=== PATIENT | female | born 1960 | race African-American/Black ===

== ENCOUNTER 2022-02-25 22:24 | Emergency (ER) | payer OTHER ==
[~2022-02-25] VITALS: Ht 167.6 cm; Wt 122.4 kg
[2022-02-25 23:58] LABS: BASOPHILS % 1.3 % (0.0-2.0); EOSINOPHILS % 2.1 % (0.0-5.0); HEMATOCRIT. 41.2 % (36.0-48.0); HEMOGLOBIN. 13.9 g/dL (12.0-16.0); LYMPHOCYTES % 34.4 % (20.0-50.0); MEAN CORPUSCULAR HEMOGLOBIN 29.6 pg (28.0-32.0); MEAN CORPUSCULAR VOLUME 87.9 fL (81.0-99.0); MEAN PLATELET VOLUME 9.6 fl (7.4-10.4); NEUTROPHILS % 56.2 % (40.0-76.0); PLATELET 225 x1000/uL (130-400); RED BLOOD CELL COUNT 4.68 mill/uL (4.2-5.4); RED CELL DISTRIBUTION WIDTH 13.8 % (11.6-14.6)
[2022-02-26 00:05] LABS: CHLORIDE 103 mEq/L (98-107)
[2022-02-26] MEDS ORDERED: IOHEXOL-350 100 ML BOTTLE ONE (01:05)
[2022-02-26 01:31] VITALS: BP 154/82
[2022-02-26 02:00] LABS: PROTHROMBIN TIME 10.9 sec (9.6-11.0)
[2022-02-26] MEDS ORDERED: ASPIRIN 325MG TABLET PO ONE (02:45)
[2022-02-26] MEDS ORDERED: LORAZEPAM 2MG/ML CPJ IV ONE (03:30)
== END 2022-02-26 07:04 | disposition left against medical advice (07) ==
LOC: ER 22:24 → CANBEDREQ 02-26 07:44
DX: D32.0 Benign neoplasm of cerebral meninges (principal); E11.9 Type 2 diabetes mellitus without complications; Z86.73 Personal history of transient ischemic attack (TIA), and cerebral infarction without residual deficits; Z88.8 Allergy status to other drugs, medicaments and biological substances; Z79.01 Long term (current) use of anticoagulants
CPT/HCPCS: 36415; 70450; 70496; 71045; 80053; 84484; 85025; 85610; 93005; 96374; 99285; J2060; Q9967

== ENCOUNTER 2022-03-13 00:03 | Inpatient (IN) | payer OTHER ==
[~2022-03-13] VITALS: Ht 162.6 cm; Wt 127.5 kg
[2022-03-13 00:50] LABS: BASOPHILS % 0.8 % (0.0-2.0); EOSINOPHILS % 2.3 % (0.0-5.0); HEMATOCRIT. 39.1 % (36.0-48.0); LYMPHOCYTES % 37.2 % (20.0-50.0); MEAN CORPUSCULAR HEMOGLOBIN 29.3 pg (28.0-32.0); MEAN CORPUSCULAR VOLUME 88.1 fL (81.0-99.0); MEAN PLATELET VOLUME 8.9 fl (7.4-10.4); MONOCYTES % 6.8 % (2.0-8.0); NEUTROPHILS % 52.9 % (40.0-76.0); PLATELET 199 x1000/uL (130-400); RED BLOOD CELL COUNT 4.44 mill/uL (4.2-5.4); RED CELL DISTRIBUTION WIDTH 13.8 % (11.6-14.6)
[2022-03-13 00:53] LABS: CHLORIDE 103 mEq/L (98-107)
[2022-03-13 01:11] LABS: ETHANOL BLOOD < 10 mg/dL
[2022-03-13] MEDS ORDERED: ASPIRIN 325MG EC TABLET PO NR (02:30)
[2022-03-13 03:21] LABS: CLARITY URINE CLOUDY (CLEAR); COLOR URINE YELLOW (YELLOW); KETONES URINE TRACE (NEGATIVE); LEUKOCYTE ESTERASE URINE 1+ (NEGATIVE); NITRITE URINE POSITIVE (NEGATIVE); OCCULT BLOOD URINE NEGATIVE (NEGATIVE); PH URINE 5.5 (4.5-8.0); PROTEIN URINE NEGATIVE (NEGATIVE); SPECIFIC GRAVITY URINE 1.042 (1.005-1.030)
[2022-03-13 03:45] LABS: *AMPHETAMINES SCREEN URINE NEGATIVE (NEGATIVE); *BARBITURATES SCREEN URINE NEGATIVE (NEGATIVE); *BENZODIAZEPINES SCREEN URINE NEGATIVE (NEGATIVE); *COCAINE SCREEN URINE NEGATIVE (NEGATIVE); CANNABINOID URINE SCREEN NEGATIVE (NEGATIVE); METHADONE URINE SCREEN NEGATIVE (NEGATIVE); OPIATES URINE SCREEN NEGATIVE (NEGATIVE); PHENCYCLIDINE URINE SCREEN NEGATIVE (NEGATIVE)
[2022-03-13] MEDS ORDERED: CEFTRIAXONE 1 G PREMIX 50 ML IV NR (04:00)
[2022-03-13 08:00] VITALS: BP 147/88
[2022-03-13 12:00] VITALS: BP 153/83
[2022-03-13] MEDS ORDERED: METF-414 PO (14:06)
[2022-03-13] MEDS ORDERED: ATOR10TA MT (14:13)
[2022-03-13] MEDS ORDERED: ERTU5TAB PO (14:13)
[2022-03-13] MEDS ORDERED: APIX5TAB PO (14:19)
[2022-03-13] MEDS ORDERED: DEXTROSE 50% WATER 50ML SYRINGE IV PRN ×3 (14:30→15:15)
[2022-03-13] MEDS ORDERED: ENOXAPARIN 30MG/0.3ML SYR SUBCUT SCH ×3 (14:30→21:00)
[2022-03-13] MEDS ORDERED: CEFTRIAXONE 1 G PREMIX 50 ML IV SCH (14:30)
[2022-03-13] MEDS: ASPIRIN 81MG TABLET PO SCH (15:15)
[2022-03-13] MEDS: LISINOPRIL 20MG TABLET PO SCH (15:16)
[2022-03-13 16:00] VITALS: BP 143/81
[2022-03-13] MEDS: BLOOD SUGAR DIAGNOSTIC STRIP TEST SCH ×2 (16:52→20:16)
[2022-03-13] MEDS: METFORMIN HCL 500MG TABLET PO SCH (17:09)
[2022-03-13] MEDS: INSULIN LISPRO 100 UNITS/ML SUBCUT SCH ×2 (17:14→21:45)
[2022-03-13] MEDS ORDERED: INSULIN LISPRO 100 UNITS/ML SUBCUT SCH (17:50)
[2022-03-13 20:00] VITALS: BP 151/81
[2022-03-13] MEDS ORDERED: ATORVASTATIN CALCIUM 40MG TABLET PO SCH (21:00)
[2022-03-13] MEDS ORDERED: NALOXONE HCL 0.4MG/ML VIAL IV PRN (21:30)
[2022-03-13] MEDS: HYDROCODONE/ACETAMINOPHEN 5/325MG TABLET PO PRN (21:43)
[2022-03-13] MEDS ORDERED: LORAZEPAM 2MG/ML CPJ IV NR (21:45)
[2022-03-13 21:52] LABS: CHLORIDE 109 mEq/L (98-107)
[2022-03-13 21:59] LABS: HDL CHOLESTEROL 41 mg/dL (40-59); LDL CHOLESTEROL 96 mg/dL (5-100)
[2022-03-14] VITALS (7 sets, daily range): BP systolic 108–179; BP diastolic 58–92
[2022-03-14 01:04] LABS: BASOPHILS % 0.9 % (0.0-2.0); EOSINOPHILS % 3.2 % (0.0-5.0); HEMATOCRIT. 40.8 % (36.0-48.0); HEMOGLOBIN. 13.4 g/dL (12.0-16.0); LYMPHOCYTES % 38.9 % (20.0-50.0); MEAN CORPUSCULAR VOLUME 88.4 fL (81.0-99.0); MONOCYTES % 9.4 % (2.0-8.0); NEUTROPHILS % 47.6 % (40.0-76.0); PLATELET 186 x1000/uL (130-400); RED BLOOD CELL COUNT 4.62 mill/uL (4.2-5.4); RED CELL DISTRIBUTION WIDTH 13.6 % (11.6-14.6)
[2022-03-14] MEDS: CEFTRIAXONE 1,000 MG in DEXTROSE 5% WATER 50 ML IV SCH (04:00)
[2022-03-14] MEDS ORDERED: CLONIDINE 0.1MG TABLET PO PRN (06:30)
[2022-03-14] MEDS: BLOOD SUGAR DIAGNOSTIC STRIP TEST SCH ×4 (06:36→21:00)
[2022-03-14] MEDS: APIXABAN 5 MG TABLET PO SCH (08:52)
[2022-03-14] MEDS: ASPIRIN 81MG TABLET PO SCH (08:52)
[2022-03-14] MEDS: LISINOPRIL 20MG TABLET PO SCH (08:52)
[2022-03-14] MEDS: METFORMIN HCL 500MG TABLET PO SCH (08:52)
[2022-03-14] MEDS ORDERED: ATORVASTATIN CALCIUM 10MG TABLET PO SCH (09:00)
[2022-03-14] MEDS: INSULIN LISPRO 100 UNITS/ML SUBCUT SCH ×3 (09:10→21:00)
[2022-03-14] MEDS ORDERED: LORAZEPAM 2MG/ML CPJ IV SCH (09:30)
[2022-03-14] MEDS: ATORVASTATIN CALCIUM 40MG TABLET PO SCH (22:00)
[2022-03-15] VITALS: BP 152/73
[2022-03-15 04:00] VITALS: BP 155/76
[2022-03-15] MEDS: CEFTRIAXONE 1,000 MG in DEXTROSE 5% WATER 50 ML IV SCH (04:00)
[2022-03-15] MEDS: INSULIN LISPRO 100 UNITS/ML SUBCUT SCH ×4 (06:33→21:53)
[2022-03-15] MEDS: BLOOD SUGAR DIAGNOSTIC STRIP TEST SCH ×4 (06:36→21:00)
[2022-03-15 08:00] VITALS: BP 137/83
[2022-03-15] MEDS: LISINOPRIL 20MG TABLET PO SCH (09:13)
[2022-03-15] MEDS: ASPIRIN 81MG TABLET PO SCH (09:13)
[2022-03-15] MEDS: METFORMIN HCL 500MG TABLET PO SCH ×2 (09:14→18:08)
[2022-03-15] MEDS: APIXABAN 5 MG TABLET PO SCH ×2 (09:14→18:08)
[2022-03-15 11:27] LABS: HEMATOCRIT. 41.2 % (36.0-48.0); HEMOGLOBIN. 13.9 g/dL (12.0-16.0); MEAN CORPUSCULAR HEMOGLOBIN 29.4 pg (28.0-32.0); MEAN CORPUSCULAR VOLUME 87.2 fL (81.0-99.0); MEAN PLATELET VOLUME 9.6 fl (7.4-10.4); PLATELET 197 x1000/uL (130-400); RED BLOOD CELL COUNT 4.72 mill/uL (4.2-5.4); RED CELL DISTRIBUTION WIDTH 14.1 % (11.6-14.6)
[2022-03-15 11:35] LABS: CHLORIDE 105 mEq/L (98-107)
[2022-03-15 12:00] VITALS: BP 141/74
[2022-03-15] MEDS: HYDROCODONE/ACETAMINOPHEN 5/325MG TABLET PO PRN ×2 (13:25→21:43)
[2022-03-15 13:28] LABS: PLATELET ESTIMATE NORMAL
[2022-03-15 16:00] VITALS: BP 118/61
[2022-03-15 20:00] VITALS: BP 130/61
[2022-03-15] MEDS: ATORVASTATIN CALCIUM 40MG TABLET PO SCH (21:42)
[2022-03-16] VITALS: BP 140/78
[2022-03-16 04:00] VITALS: BP 148/88
[2022-03-16] MEDS: INSULIN LISPRO 100 UNITS/ML SUBCUT SCH ×4 (06:12→21:50)
[2022-03-16] MEDS: BLOOD SUGAR DIAGNOSTIC STRIP TEST SCH ×4 (06:16→21:25)
[2022-03-16 08:00] VITALS: BP 147/79
[2022-03-16] MEDS: APIXABAN 5 MG TABLET PO SCH ×2 (09:30→17:52)
[2022-03-16] MEDS: ASPIRIN 81MG TABLET PO SCH (09:30)
[2022-03-16] MEDS: METFORMIN HCL 500MG TABLET PO SCH ×2 (09:30→17:52)
[2022-03-16] MEDS: LISINOPRIL 20MG TABLET PO SCH (09:31)
[2022-03-16 11:16] LABS: BASOPHILS % 1.1 % (0.0-2.0); EOSINOPHILS % 3.9 % (0.0-5.0); HEMATOCRIT. 39.3 % (36.0-48.0); HEMOGLOBIN. 13.2 g/dL (12.0-16.0); LYMPHOCYTES % 40.1 % (20.0-50.0); MEAN CORPUSCULAR HEMOGLOBIN 29.2 pg (28.0-32.0); MEAN CORPUSCULAR VOLUME 86.6 fL (81.0-99.0); MEAN PLATELET VOLUME 9.4 fl (7.4-10.4); MONOCYTES % 7.4 % (2.0-8.0); NEUTROPHILS % 47.5 % (40.0-76.0); PLATELET 168 x1000/uL (130-400); RED BLOOD CELL COUNT 4.54 mill/uL (4.2-5.4); RED CELL DISTRIBUTION WIDTH 13.8 % (11.6-14.6)
[2022-03-16 11:30] LABS: CHLORIDE 106 mEq/L (98-107)
[2022-03-16 12:00] VITALS: BP 141/77
[2022-03-16] MEDS: HYDROCODONE/ACETAMINOPHEN 5/325MG TABLET PO PRN (12:40)
[2022-03-16 16:00] VITALS: BP 135/75
[2022-03-16 20:00] VITALS: BP 125/65
[2022-03-16] MEDS ORDERED: TOPI100T37 PO (21:13)
[2022-03-16] MEDS ORDERED: SUMA50TA16 PO (21:13)
[2022-03-16] MEDS ORDERED: MECL-159 PO (21:13)
[2022-03-16] MEDS: TOPIRAMATE 100MG TABLET PO SCH (21:47)
[2022-03-16] MEDS: GABAPENTIN 100MG CAPSULE PO SCH (21:47)
[2022-03-16] MEDS: ATORVASTATIN CALCIUM 40MG TABLET PO SCH (21:47)
[2022-03-16] MEDS ORDERED: *PATIENT'S OWN MEDICATION STORAGE XX SCH (22:00)
[2022-03-17] VITALS: BP 142/61
[2022-03-17 04:00] VITALS: BP 130/66
[2022-03-17] MEDS: GABAPENTIN 100MG CAPSULE PO SCH ×3 (05:47→19:42)
[2022-03-17] MEDS: BLOOD SUGAR DIAGNOSTIC STRIP TEST SCH ×5 (05:47→21:00)
[2022-03-17 06:57] LABS: BASOPHILS % 0.5 % (0.0-2.0); EOSINOPHILS % 3.7 % (0.0-5.0); HEMATOCRIT. 39.3 % (36.0-48.0); HEMOGLOBIN. 13.1 g/dL (12.0-16.0); LYMPHOCYTES % 38.8 % (20.0-50.0); MEAN CORPUSCULAR VOLUME 86.8 fL (81.0-99.0); MEAN PLATELET VOLUME 10.2 fl (7.4-10.4); MONOCYTES % 6.6 % (2.0-8.0); NEUTROPHILS % 50.4 % (40.0-76.0); PLATELET 169 x1000/uL (130-400); RED BLOOD CELL COUNT 4.52 mill/uL (4.2-5.4); RED CELL DISTRIBUTION WIDTH 13.7 % (11.6-14.6)
[2022-03-17 06:59] LABS: CHLORIDE 104 mEq/L (98-107)
[2022-03-17] MEDS: INSULIN LISPRO 100 UNITS/ML SUBCUT SCH ×5 (07:45→21:00)
[2022-03-17 08:00] VITALS: BP 119/78
[2022-03-17] MEDS: APIXABAN 5 MG TABLET PO SCH ×2 (09:34→18:17)
[2022-03-17] MEDS: ASPIRIN 81MG TABLET PO SCH (09:34)
[2022-03-17] MEDS: LISINOPRIL 20MG TABLET PO SCH (09:34)
[2022-03-17] MEDS: METFORMIN HCL 500MG TABLET PO SCH ×2 (09:34→18:17)
[2022-03-17 12:00] VITALS: BP 156/89
[2022-03-17] MEDS: HYDROCODONE/ACETAMINOPHEN 5/325MG TABLET PO PRN (20:48)
[2022-03-17] MEDS: ATORVASTATIN CALCIUM 40MG TABLET PO SCH (20:48)
[2022-03-17] MEDS: TOPIRAMATE 100MG TABLET PO SCH (20:51)
[2022-03-17 21:00] VITALS: BP 153/66
[2022-03-17] MEDS ORDERED: TOPIRAMATE 100MG TABLET PO SCH (21:00)
[2022-03-18] VITALS (7 sets, daily range): BP systolic 112–180; BP diastolic 56–92
[2022-03-18 05:26] LABS: BASOPHILS % 0.7 % (0.0-2.0); EOSINOPHILS % 4.1 % (0.0-5.0); HEMATOCRIT. 40.7 % (36.0-48.0); HEMOGLOBIN. 13.5 g/dL (12.0-16.0); LYMPHOCYTES % 39.9 % (20.0-50.0); MEAN CORPUSCULAR HEMOGLOBIN 29.5 pg (28.0-32.0); MEAN CORPUSCULAR VOLUME 88.7 fL (81.0-99.0); MONOCYTES % 6.4 % (2.0-8.0); NEUTROPHILS % 48.9 % (40.0-76.0); RED BLOOD CELL COUNT 4.59 mill/uL (4.2-5.4); RED CELL DISTRIBUTION WIDTH 13.7 % (11.6-14.6)
[2022-03-18 05:30] LABS: CHLORIDE 107 mEq/L (98-107)
[2022-03-18] MEDS: GABAPENTIN 100MG CAPSULE PO SCH ×3 (06:02→21:38)
[2022-03-18] MEDS: BLOOD SUGAR DIAGNOSTIC STRIP TEST SCH ×4 (07:20→21:38)
[2022-03-18] MEDS: INSULIN LISPRO 100 UNITS/ML SUBCUT SCH ×4 (07:50→21:00)
[2022-03-18] MEDS: LISINOPRIL 20MG TABLET PO SCH ×2 (09:00→09:07)
[2022-03-18] MEDS: ASPIRIN 81MG TABLET PO SCH (09:01)
[2022-03-18] MEDS: METFORMIN HCL 500MG TABLET PO SCH ×2 (09:02→17:40)
[2022-03-18] MEDS: APIXABAN 5 MG TABLET PO SCH ×2 (09:07→17:00)
[2022-03-18] MEDS: HYDROCODONE/ACETAMINOPHEN 5/325MG TABLET PO PRN (12:08)
[2022-03-18 15:47] LABS: CLARITY URINE CLOUDY (CLEAR); COLOR URINE YELLOW (YELLOW); KETONES URINE NEGATIVE (NEGATIVE); LEUKOCYTE ESTERASE URINE 2+ (NEGATIVE); NITRITE URINE NEGATIVE (NEGATIVE); OCCULT BLOOD URINE NEGATIVE (NEGATIVE); PROTEIN URINE NEGATIVE (NEGATIVE); SPECIFIC GRAVITY URINE 1.018 (1.005-1.030)
[2022-03-18] MEDS: TOPIRAMATE 100MG TABLET PO SCH (21:38)
[2022-03-18] MEDS: ATORVASTATIN CALCIUM 40MG TABLET PO SCH (21:38)
[2022-03-18] MEDS ORDERED: HYDROCODONE/ACETAMINOPHEN 5/325MG TABLET PO PRN (21:45)
[2022-03-19] VITALS: BP 107/71
[2022-03-19 04:00] VITALS: BP 134/86
[2022-03-19] MEDS: BLOOD SUGAR DIAGNOSTIC STRIP TEST SCH ×4 (06:58→20:57)
[2022-03-19] MEDS: GABAPENTIN 100MG CAPSULE PO SCH ×3 (06:58→22:06)
[2022-03-19 08:00] VITALS: BP 122/61
[2022-03-19] MEDS: APIXABAN 5 MG TABLET PO SCH ×2 (09:05→18:31)
[2022-03-19] MEDS: ASPIRIN 81MG TABLET PO SCH (09:05)
[2022-03-19] MEDS: METFORMIN HCL 500MG TABLET PO SCH ×2 (09:05→18:32)
[2022-03-19] MEDS: INSULIN LISPRO 100 UNITS/ML SUBCUT SCH ×4 (09:12→21:04)
[2022-03-19] MEDS: LISINOPRIL 20MG TABLET PO SCH (09:16)
[2022-03-19 16:00] VITALS: BP 130/69
[2022-03-19 20:00] VITALS: BP 121/75
[2022-03-19] MEDS: TOPIRAMATE 100MG TABLET PO SCH (21:00)
[2022-03-19] MEDS: ATORVASTATIN CALCIUM 40MG TABLET PO SCH (21:00)
[2022-03-19] MEDS ORDERED: NALOXONE HCL 0.4MG/ML VIAL IV PRN (21:45)
[2022-03-19] MEDS: HYDROCODONE/ACETAMINOPHEN 5/325MG TABLET PO PRN (22:06)
[2022-03-20] VITALS: BP 127/62
[2022-03-20 04:00] VITALS: BP 130/70
[2022-03-20] MEDS: BLOOD SUGAR DIAGNOSTIC STRIP TEST SCH ×4 (05:32→21:00)
[2022-03-20] MEDS: GABAPENTIN 100MG CAPSULE PO SCH ×3 (05:32→21:26)
[2022-03-20 08:00] VITALS: BP 130/76
[2022-03-20 08:13] LABS: BASOPHILS % 0.4 % (0.0-2.0); EOSINOPHILS % 3.9 % (0.0-5.0); HEMATOCRIT. 41.2 % (36.0-48.0); HEMOGLOBIN. 13.6 g/dL (12.0-16.0); LYMPHOCYTES % 38.9 % (20.0-50.0); MEAN CORPUSCULAR HEMOGLOBIN 29.1 pg (28.0-32.0); MEAN CORPUSCULAR VOLUME 88.4 fL (81.0-99.0); MEAN PLATELET VOLUME 9.7 fl (7.4-10.4); MONOCYTES % 5.2 % (2.0-8.0); NEUTROPHILS % 51.6 % (40.0-76.0); PLATELET 174 x1000/uL (130-400); RED BLOOD CELL COUNT 4.66 mill/uL (4.2-5.4)
[2022-03-20] MEDS: INSULIN LISPRO 100 UNITS/ML SUBCUT SCH ×4 (08:35→21:32)
[2022-03-20] MEDS: APIXABAN 5 MG TABLET PO SCH ×2 (08:38→15:57)
[2022-03-20] MEDS: ASPIRIN 81MG TABLET PO SCH (08:38)
[2022-03-20] MEDS: METFORMIN HCL 500MG TABLET PO SCH ×2 (08:39→17:33)
[2022-03-20] MEDS: LISINOPRIL 20MG TABLET PO SCH (08:39)
[2022-03-20 12:00] VITALS: BP 99/46
[2022-03-20 16:00] VITALS: BP 118/49
[2022-03-20 20:00] VITALS: BP 104/54
[2022-03-20] MEDS: ATORVASTATIN CALCIUM 40MG TABLET PO SCH (21:27)
[2022-03-20] MEDS: HYDROCODONE/ACETAMINOPHEN 5/325MG TABLET PO PRN (21:27)
[2022-03-20] MEDS: TOPIRAMATE 100MG TABLET PO SCH (21:27)
[2022-03-21] VITALS: BP 118/76
[2022-03-21 04:00] VITALS: BP 147/84
[2022-03-21] MEDS: GABAPENTIN 100MG CAPSULE PO SCH ×3 (06:37→21:22)
[2022-03-21] MEDS: BLOOD SUGAR DIAGNOSTIC STRIP TEST SCH ×4 (06:42→21:00)
[2022-03-21] MEDS: INSULIN LISPRO 100 UNITS/ML SUBCUT SCH ×4 (07:50→21:00)
[2022-03-21 08:00] VITALS: BP 123/62
[2022-03-21] MEDS: METFORMIN HCL 500MG TABLET PO SCH ×2 (11:58→17:43)
[2022-03-21] MEDS: LISINOPRIL 20MG TABLET PO SCH (11:59)
[2022-03-21] MEDS: ASPIRIN 81MG TABLET PO SCH (11:59)
[2022-03-21] MEDS: APIXABAN 5 MG TABLET PO SCH ×2 (11:59→17:43)
[2022-03-21 12:00] VITALS: BP 120/70
[2022-03-21] MEDS: HYDROCODONE/ACETAMINOPHEN 5/325MG TABLET PO PRN ×2 (12:00→21:24)
[2022-03-21 16:00] VITALS: BP 111/59
[2022-03-21 20:00] VITALS: BP 92/47
[2022-03-21] MEDS: ATORVASTATIN CALCIUM 40MG TABLET PO SCH (21:22)
[2022-03-21] MEDS: TOPIRAMATE 100MG TABLET PO SCH (21:22)
[2022-03-22] VITALS: BP 114/59
[2022-03-22 04:00] VITALS: BP 150/72
[2022-03-22] MEDS: GABAPENTIN 100MG CAPSULE PO SCH ×3 (06:42→21:05)
[2022-03-22] MEDS: BLOOD SUGAR DIAGNOSTIC STRIP TEST SCH ×4 (06:54→21:00)
[2022-03-22] MEDS: INSULIN LISPRO 100 UNITS/ML SUBCUT SCH ×4 (07:50→20:56)
[2022-03-22] MEDS: METFORMIN HCL 500MG TABLET PO SCH ×2 (07:50→18:12)
[2022-03-22 08:00] VITALS: BP 128/71
[2022-03-22] MEDS: ASPIRIN 81MG TABLET PO SCH (09:01)
[2022-03-22] MEDS: APIXABAN 5 MG TABLET PO SCH ×2 (09:01→18:11)
[2022-03-22] MEDS: LISINOPRIL 20MG TABLET PO SCH (09:05)
[2022-03-22 12:00] VITALS: BP 118/67
[2022-03-22 16:00] VITALS: BP 141/80
[2022-03-22 20:00] VITALS: BP 129/78
[2022-03-22] MEDS: ATORVASTATIN CALCIUM 40MG TABLET PO SCH (20:54)
[2022-03-22] MEDS: TOPIRAMATE 100MG TABLET PO SCH (20:54)
[2022-03-22] MEDS: HYDROCODONE/ACETAMINOPHEN 5/325MG TABLET PO PRN (21:05)
[2022-03-23] VITALS: BP 122/55
[2022-03-23] MEDS: HYDROCODONE/ACETAMINOPHEN 5/325MG TABLET PO PRN ×2 (02:10→13:05)
[2022-03-23 04:00] VITALS: BP 131/59
[2022-03-23] MEDS: GABAPENTIN 100MG CAPSULE PO SCH (06:32)
[2022-03-23] MEDS: BLOOD SUGAR DIAGNOSTIC STRIP TEST SCH (06:32)
[2022-03-23 08:00] VITALS: BP 130/68
[2022-03-23] MEDS: ASPIRIN 81MG TABLET PO SCH (09:09)
[2022-03-23] MEDS: METFORMIN HCL 500MG TABLET PO SCH (09:09)
[2022-03-23] MEDS: APIXABAN 5 MG TABLET PO SCH (09:10)
[2022-03-23] MEDS: LISINOPRIL 20MG TABLET PO SCH (09:10)
[2022-03-23] MEDS: INSULIN LISPRO 100 UNITS/ML SUBCUT SCH (09:32)
[2022-03-23 10:37] VITALS: BP 130/68
[2022-03-23 13:05] VITALS: BP 130/68
== END 2022-03-23 15:54 | DRG 45 ==
LOC: ER 00:03 → 6WST 04:11 → ENRESERV 06:53 → 6EST 03-19 14:37
PROVIDERS: ADMIT Internal Medicine; ATTEND Internal Medicine
DX: I63.511 Cerebral infarction due to unspecified occlusion or stenosis of right middle cerebral artery (principal); I31.39 Other pericardial effusion (noninflammatory); E44.0 Moderate protein-calorie malnutrition; D32.0 Benign neoplasm of cerebral meninges; E11.9 Type 2 diabetes mellitus without complications; Z20.822 Contact with and (suspected) exposure to COVID-19; N39.0 Urinary tract infection, site not specified; E78.5 Hyperlipidemia, unspecified; E66.01 Morbid (severe) obesity due to excess calories; H54.40 Blindness, one eye, unspecified eye; I10 Essential (primary) hypertension; I69.354 Hemiplegia and hemiparesis following cerebral infarction affecting left non-dominant side; Z88.8 Allergy status to other drugs, medicaments and biological substances; Z91.199 Patient's noncompliance with other medical treatment and regimen due to unspecified reason; Z79.01 Long term (current) use of anticoagulants; Z68.42 Body mass index [BMI] 45.0-49.9, adult
CPT/HCPCS: 36415; 70551; 71045; 80048; 80053; 80061; 80305; 80320; 81003; 82140; 82962; 83036; 84443; 84484; 85025; 87426; 93005; 93306; 93880; 97110; 97112; 97116; 97162; 97166; 97530; 97535; 99285; C1893; J0696; J1650; J1815; J2060; J7060; U0003; U0005; G0480

== ENCOUNTER 2022-05-01 17:03 | Emergency (ER) | payer MEDICAID, OTHER ==
[~2022-05-01] VITALS: Ht 167.6 cm; Wt 117.0 kg
[~2022-05-01 17:03] MED LIST: APIX5TAB PO; ATOR10TA MT; ERTU5TAB PO; MECL-159 PO; METF-414 PO; SUMA50TA16 PO; TOPI100T37 PO
[2022-05-01 18:00] LABS: BASOPHILS % 0.7 % (0.0-2.0); EOSINOPHILS % 1.6 % (0.0-5.0); HEMATOCRIT. 42.3 % (36.0-48.0); LYMPHOCYTES % 30.6 % (20.0-50.0); MEAN CORPUSCULAR HEMOGLOBIN 29.1 pg (28.0-32.0); MEAN CORPUSCULAR VOLUME 88.1 fL (81.0-99.0); MEAN PLATELET VOLUME 9.1 fl (7.4-10.4); MONOCYTES % 5.4 % (2.0-8.0); NEUTROPHILS % 61.7 % (40.0-76.0); PLATELET 214 x1000/uL (130-400); RED CELL DISTRIBUTION WIDTH 13.9 % (11.6-14.6)
[2022-05-01 18:08] LABS: CHLORIDE 107 mEq/L (98-107)
[2022-05-01 21:36] LABS: CLARITY URINE CLEAR (CLEAR); COLOR URINE YELLOW (YELLOW); KETONES URINE 2+ (NEGATIVE); LEUKOCYTE ESTERASE URINE NEGATIVE (NEGATIVE); NITRITE URINE NEGATIVE (NEGATIVE); OCCULT BLOOD URINE NEGATIVE (NEGATIVE); PROTEIN URINE NEGATIVE (NEGATIVE); SPECIFIC GRAVITY URINE 1.038 (1.005-1.030); UROBILINOGEN URINE 0.2 E.U./dL (0.2-1.0)
[2022-05-01] MEDS ORDERED: HYDR-4001 MT (23:18)
[2022-05-02 00:38] VITALS: BP 145/83
== END 2022-05-02 00:40 | disposition home or self-care (01) ==
LOC: ER 17:08
DX: R10.9 Unspecified abdominal pain (principal); N20.0 Calculus of kidney; E11.9 Type 2 diabetes mellitus without complications; I10 Essential (primary) hypertension; Z88.8 Allergy status to other drugs, medicaments and biological substances; Z86.73 Personal history of transient ischemic attack (TIA), and cerebral infarction without residual deficits; Z90.49 Acquired absence of other specified parts of digestive tract; Z98.890 Other specified postprocedural states
CPT/HCPCS: 36415; 74176; 80053; 81003; 83690; 85025; 99284; Z7610

== ENCOUNTER 2022-05-15 13:56 | Inpatient (IN) | payer MEDICAID, OTHER ==
[~2022-05-15] VITALS: Ht 165.1 cm; Wt 131.5 kg
[~2022-05-15 13:56] MED LIST changes: +HYDR-4001 MT
[2022-05-15] MEDS ORDERED: HYDROCODONE/ACETAMINOPHEN 5/325MG TABLET PO STA (14:51)
[2022-05-15 16:00] LABS: BASOPHILS % 0.9 % (0.0-2.0); EOSINOPHILS % 0.6 % (0.0-5.0); HEMATOCRIT. 39.1 % (36.0-48.0); HEMOGLOBIN. 13.1 g/dL (12.0-16.0); LYMPHOCYTES % 29.6 % (20.0-50.0); MEAN CORPUSCULAR HEMOGLOBIN 29.8 pg (28.0-32.0); MEAN CORPUSCULAR VOLUME 88.8 fL (81.0-99.0); MEAN PLATELET VOLUME 9.3 fl (7.4-10.4); MONOCYTES % 6.1 % (2.0-8.0); NEUTROPHILS % 62.8 % (40.0-76.0); PLATELET 232 x1000/uL (130-400); RED BLOOD CELL COUNT 4.41 mill/uL (4.2-5.4); RED CELL DISTRIBUTION WIDTH 14.8 % (11.6-14.6)
[2022-05-15 16:07] LABS: CHLORIDE 109 mEq/L (98-107)
[2022-05-15 16:28] LABS: CLARITY URINE CLOUDY (CLEAR); COLOR URINE YELLOW (YELLOW); KETONES URINE 3+ (NEGATIVE); LEUKOCYTE ESTERASE URINE 1+ (NEGATIVE); NITRITE URINE NEGATIVE (NEGATIVE); OCCULT BLOOD URINE TRACE (NEGATIVE); PH URINE 5.5 (4.5-8.0); PROTEIN URINE NEGATIVE (NEGATIVE); SPECIFIC GRAVITY URINE 1.044 (1.005-1.030); UROBILINOGEN URINE 0.2 E.U./dL (0.2-1.0)
[2022-05-15] MEDS ORDERED: SODIUM CHLORIDE 0.9% 1,000 ML IV ONE (16:30)
[2022-05-15] MEDS ORDERED: HYDROCODONE/ACETAMINOPHEN 5/325MG TABLET PO NR (16:32)
[2022-05-15 17:16] LABS: INR 1.1; PROTHROMBIN TIME 11.5 sec (9.6-11.0)
[2022-05-16] MEDS ORDERED: MORPHINE SULFATE 4 MG/ML CPJ (NOT FOR IM USE) IV ONE (00:45)
[2022-05-16] MEDS ORDERED: ONDANSETRON HCL 4MG/2ML INJ IV ONE (00:45)
[2022-05-16 10:00] VITALS: BP 153/90
[2022-05-16] MEDS ORDERED: NALOXONE HCL 0.4MG/ML VIAL IV PRN (11:00)
[2022-05-16] MEDS ORDERED: GABA-532 MT (11:14)
[2022-05-16] MEDS ORDERED: BACL-141 PO (11:14)
[2022-05-16] MEDS ORDERED: LISI-652 MT (11:14)
[2022-05-16 12:00] VITALS: BP 152/77
[2022-05-16] MEDS: HYDROCODONE/ACETAMINOPHEN 5/325MG TABLET PO PRN ×2 (12:03→20:05)
[2022-05-16] MEDS: ENOXAPARIN 30MG/0.3ML SYR SUBCUT SCH ×2 (12:04→22:07)
[2022-05-16] MEDS ORDERED: LORAZEPAM 2MG/ML CPJ IV NR (12:30)
[2022-05-16] MEDS: INSULIN LISPRO 100 UNITS/ML SUBCUT SCH ×3 (13:30→20:00)
[2022-05-16] MEDS ORDERED: DEXTROSE 50% WATER 50ML SYRINGE IV PRN (13:30)
[2022-05-16] MEDS: BLOOD SUGAR DIAGNOSTIC STRIP TEST SCH ×3 (13:53→20:00)
[2022-05-16 16:00] VITALS: BP 128/86
[2022-05-16] MEDS: GABAPENTIN 300MG CAPSULE PO SCH (18:43)
[2022-05-16] MEDS: METFORMIN HCL 500MG TABLET PO SCH (18:43)
[2022-05-16] MEDS: BACLOFEN 10MG TABLET PO SCH (18:43)
[2022-05-16 20:00] VITALS: BP 141/72
[2022-05-16] MEDS: ATORVASTATIN CALCIUM 40MG TABLET PO SCH ×2 (20:06→20:11)
[2022-05-16] MEDS ORDERED: IOHEXOL-350 100 ML BOTTLE ONE (23:58)
[2022-05-17] VITALS: BP 113/78
[2022-05-17 04:00] VITALS: BP 128/70
[2022-05-17] MEDS: BLOOD SUGAR DIAGNOSTIC STRIP TEST SCH ×4 (06:11→20:08)
[2022-05-17] MEDS: INSULIN LISPRO 100 UNITS/ML SUBCUT SCH ×4 (06:11→20:10)
[2022-05-17] MEDS: METFORMIN HCL 500MG TABLET PO SCH ×2 (07:40→17:59)
[2022-05-17 08:08] VITALS: BP 127/78
[2022-05-17] MEDS: ASPIRIN 81MG TABLET PO SCH (09:00)
[2022-05-17] MEDS: GABAPENTIN 300MG CAPSULE PO SCH ×2 (09:00→17:24)
[2022-05-17] MEDS: BACLOFEN 10MG TABLET PO SCH (09:00)
[2022-05-17] MEDS: ENOXAPARIN 30MG/0.3ML SYR SUBCUT SCH ×2 (09:42→20:09)
[2022-05-17] MEDS ORDERED: KETOROLAC 15MG/ML VIAL IV NR (10:00)
[2022-05-17 12:00] VITALS: BP 148/80
[2022-05-17 20:00] VITALS: BP 126/76
[2022-05-17] MEDS: LACTULOSE 20G/30ML UDC PO NR ×2 (20:09→20:20)
[2022-05-17] MEDS: ATORVASTATIN CALCIUM 40MG TABLET PO SCH (20:09)
[2022-05-17] MEDS: DOCUSATE SODIUM 250MG CAPSULE PO PRN (21:00)
[2022-05-18] VITALS: BP 153/75
[2022-05-18 04:00] VITALS: BP 149/74
[2022-05-18] MEDS: BLOOD SUGAR DIAGNOSTIC STRIP TEST SCH ×4 (06:06→21:56)
[2022-05-18] MEDS: INSULIN LISPRO 100 UNITS/ML SUBCUT SCH ×4 (06:08→22:03)
[2022-05-18 07:44] VITALS: BP 170/81
[2022-05-18] MEDS: ASPIRIN 81MG TABLET PO SCH (09:52)
[2022-05-18] MEDS: METFORMIN HCL 500MG TABLET PO SCH ×2 (09:53→17:55)
[2022-05-18] MEDS: GABAPENTIN 300MG CAPSULE PO SCH ×2 (09:53→16:59)
[2022-05-18] MEDS: BACLOFEN 10MG TABLET PO SCH (09:54)
[2022-05-18] MEDS: ENOXAPARIN 30MG/0.3ML SYR SUBCUT SCH ×2 (09:55→21:55)
[2022-05-18 12:00] VITALS: BP 150/75
[2022-05-18] MEDS ORDERED: LORAZEPAM 2MG/ML CPJ IV SCH (12:30)
[2022-05-18] MEDS ORDERED: GADOTERATE MEGLUMINE 5 MMOL/10 ML VIAL IV ONE (14:26)
[2022-05-18 16:00] VITALS: BP 152/76
[2022-05-18] MEDS: HYDROCODONE/ACETAMINOPHEN 5/325MG TABLET PO PRN (16:59)
[2022-05-18 20:00] VITALS: BP 140/92
[2022-05-18] MEDS: CLOTRIMAZOLE 1% VAGINAL CREAM 45GM VG SCH (21:55)
[2022-05-18] MEDS: ATORVASTATIN CALCIUM 40MG TABLET PO SCH (21:56)
[2022-05-19] VITALS: BP 163/76
[2022-05-19] MEDS: HYDROCODONE/ACETAMINOPHEN 5/325MG TABLET PO PRN ×2 (01:28→09:29)
[2022-05-19 04:00] VITALS: BP 138/92
[2022-05-19] MEDS: INSULIN LISPRO 100 UNITS/ML SUBCUT SCH ×4 (06:49→20:38)
[2022-05-19] MEDS: BLOOD SUGAR DIAGNOSTIC STRIP TEST SCH ×4 (06:50→20:06)
[2022-05-19] MEDS: METFORMIN HCL 500MG TABLET PO SCH ×2 (07:40→16:47)
[2022-05-19 08:00] VITALS: BP 138/84
[2022-05-19] MEDS ORDERED: HYDROCODONE/ACETAMINOPHEN 10/325MG TABLET PO PRN (10:08)
[2022-05-19] MEDS: ENOXAPARIN 30MG/0.3ML SYR SUBCUT SCH ×2 (10:23→20:37)
[2022-05-19] MEDS: GABAPENTIN 300MG CAPSULE PO SCH ×2 (10:24→16:26)
[2022-05-19] MEDS: ASPIRIN 81MG TABLET PO SCH (10:33)
[2022-05-19] MEDS: BACLOFEN 10MG TABLET PO SCH (10:33)
[2022-05-19 12:00] VITALS: BP 135/71
[2022-05-19] MEDS ORDERED: LACTULOSE 20G/30ML UDC PO PRN (12:15)
[2022-05-19] MEDS ORDERED: HYDROCODONE/ACETAMINOPHEN 5/325MG TABLET PO PRN (14:30)
[2022-05-19 16:00] VITALS: BP 123/64
[2022-05-19 20:00] VITALS: BP 121/62
[2022-05-19] MEDS: NA PHOS,M-B/NA PHOS,DI-BA ENEMA 118ML PR PRN (20:36)
[2022-05-19] MEDS: CLOTRIMAZOLE 1% VAGINAL CREAM 45GM VG SCH (20:37)
[2022-05-19] MEDS: ATORVASTATIN CALCIUM 40MG TABLET PO SCH ×2 (20:37→21:00)
[2022-05-20] VITALS: BP 126/64
[2022-05-20 04:00] VITALS: BP 149/67
[2022-05-20] MEDS: BLOOD SUGAR DIAGNOSTIC STRIP TEST SCH ×4 (05:43→21:00)
[2022-05-20] MEDS: INSULIN LISPRO 100 UNITS/ML SUBCUT SCH ×4 (05:43→20:53)
[2022-05-20 08:00] VITALS: BP 143/81
[2022-05-20] MEDS: ASPIRIN 81MG TABLET PO SCH (09:15)
[2022-05-20] MEDS: METFORMIN HCL 500MG TABLET PO SCH ×2 (09:15→18:01)
[2022-05-20] MEDS: BACLOFEN 10MG TABLET PO SCH (09:16)
[2022-05-20] MEDS: DOCUSATE SODIUM 100MG CAPSULE PO SCH (09:16)
[2022-05-20] MEDS: GABAPENTIN 300MG CAPSULE PO SCH ×2 (09:16→18:00)
[2022-05-20] MEDS: ENOXAPARIN 30MG/0.3ML SYR SUBCUT SCH ×2 (09:16→20:46)
[2022-05-20 12:00] VITALS: BP 130/72
[2022-05-20] MEDS: OXYCODONE HCL/ACETAMINOPHEN 5/325MG TABLET PO PRN ×2 (13:56→21:55)
[2022-05-20 16:00] VITALS: BP 130/68
[2022-05-20 20:00] VITALS: BP 145/82
[2022-05-20] MEDS: ATORVASTATIN CALCIUM 40MG TABLET PO SCH (20:46)
[2022-05-20 20:51] LABS: BASOPHILS % 0.9 % (0.0-2.0); EOSINOPHILS % 2.5 % (0.0-5.0); HEMOGLOBIN. 13.3 g/dL (12.0-16.0); LYMPHOCYTES % 36.7 % (20.0-50.0); MEAN CORPUSCULAR HEMOGLOBIN 29.5 pg (28.0-32.0); MEAN CORPUSCULAR VOLUME 88.7 fL (81.0-99.0); MONOCYTES % 7.8 % (2.0-8.0); NEUTROPHILS % 52.1 % (40.0-76.0); PLATELET 218 x1000/uL (130-400); RED BLOOD CELL COUNT 4.51 mill/uL (4.2-5.4); RED CELL DISTRIBUTION WIDTH 14.6 % (11.6-14.6)
[2022-05-20 21:08] LABS: CHLORIDE 105 mEq/L (98-107)
[2022-05-20] MEDS: CLOTRIMAZOLE 1% VAGINAL CREAM 45GM VG SCH (21:56)
[2022-05-20] MEDS: INSULIN GLARGINE 100 UNITS/ML SUBCUT SCH (23:45)
[2022-05-21] VITALS: BP 134/79
[2022-05-21 04:00] VITALS: BP_SYST 121; BP_SYST 135; BP_DIAS 76; BP_DIAS 78
[2022-05-21] MEDS: INSULIN LISPRO 100 UNITS/ML SUBCUT SCH ×4 (05:40→21:06)
[2022-05-21] MEDS: BLOOD SUGAR DIAGNOSTIC STRIP TEST SCH ×4 (05:40→21:04)
[2022-05-21 08:00] VITALS: BP 153/78
[2022-05-21] MEDS: DOCUSATE SODIUM 100MG CAPSULE PO SCH ×2 (09:24→16:58)
[2022-05-21] MEDS: ENOXAPARIN 30MG/0.3ML SYR SUBCUT SCH ×2 (09:24→20:54)
[2022-05-21] MEDS: GABAPENTIN 300MG CAPSULE PO SCH ×3 (09:24→16:58)
[2022-05-21] MEDS: BACLOFEN 10MG TABLET PO SCH (09:24)
[2022-05-21] MEDS: METFORMIN HCL 500MG TABLET PO SCH ×2 (09:24→17:02)
[2022-05-21] MEDS: ASPIRIN 81MG TABLET PO SCH (09:24)
[2022-05-21] MEDS: INSULIN GLARGINE 100 UNITS/ML SUBCUT SCH ×2 (10:01→22:25)
[2022-05-21] MEDS: OXYCODONE HCL/ACETAMINOPHEN 5/325MG TABLET PO PRN ×2 (10:02→21:03)
[2022-05-21 12:00] VITALS: BP 127/70
[2022-05-21] MEDS ORDERED: LIDOCAINE 5% PATCH TOP SCH (13:30)
[2022-05-21 16:00] VITALS: BP_SYST 127; BP_SYST 140; BP_DIAS 70; BP_DIAS 81
[2022-05-21] MEDS: POLYETHYLENE GLYCOL 3350 (17GM) 1 DOSE PACK PO SCH (16:58)
[2022-05-21] MEDS: LIDOCAINE 5% PATCH TOP SCH (16:59)
[2022-05-21] MEDS ORDERED: DICLOFENAC SODIUM 1% GEL 50GM TOP SCH (17:00)
[2022-05-21] MEDS: DICLOFENAC SODIUM 1% GEL 50GM TOP SCH ×2 (17:01→20:55)
[2022-05-21 20:00] VITALS: BP 135/78
[2022-05-21] MEDS: CLOTRIMAZOLE 1% VAGINAL CREAM 45GM VG SCH (20:54)
[2022-05-21] MEDS: ATORVASTATIN CALCIUM 40MG TABLET PO SCH (20:55)
[2022-05-22 07:01] VITALS: BP 138/83
[2022-05-22 08:00] VITALS: BP 134/73
[2022-05-22] MEDS: METFORMIN HCL 500MG TABLET PO SCH ×2 (09:19→17:38)
[2022-05-22] MEDS: ASPIRIN 81MG TABLET PO SCH (09:19)
[2022-05-22] MEDS: GABAPENTIN 300MG CAPSULE PO SCH ×3 (09:19→17:38)
[2022-05-22] MEDS: BACLOFEN 10MG TABLET PO SCH (09:19)
[2022-05-22] MEDS: DOCUSATE SODIUM 100MG CAPSULE PO SCH ×2 (09:19→17:38)
[2022-05-22] MEDS: POLYETHYLENE GLYCOL 3350 (17GM) 1 DOSE PACK PO SCH (09:20)
[2022-05-22] MEDS: DICLOFENAC SODIUM 1% GEL 50GM TOP SCH ×4 (09:20→22:36)
[2022-05-22] MEDS: ENOXAPARIN 30MG/0.3ML SYR SUBCUT SCH ×2 (09:21→21:33)
[2022-05-22] MEDS: LIDOCAINE 5% PATCH TOP SCH (09:21)
[2022-05-22] MEDS: INSULIN GLARGINE 100 UNITS/ML SUBCUT SCH ×2 (09:46→21:42)
[2022-05-22] MEDS: OXYCODONE HCL/ACETAMINOPHEN 5/325MG TABLET PO PRN ×2 (11:37→21:32)
[2022-05-22] MEDS: ACETAMINOPHEN 500MG TABLET PO SCH (11:45)
[2022-05-22 11:53] VITALS: BP 132/73
[2022-05-22] MEDS: BLOOD SUGAR DIAGNOSTIC STRIP TEST SCH ×3 (12:20→21:43)
[2022-05-22] MEDS: INSULIN LISPRO 100 UNITS/ML SUBCUT SCH ×3 (13:27→21:54)
[2022-05-22 16:00] VITALS: BP 115/61
[2022-05-22 20:00] VITALS: BP 121/66
[2022-05-22] MEDS: ATORVASTATIN CALCIUM 40MG TABLET PO SCH (21:33)
[2022-05-22] MEDS: CLOTRIMAZOLE 1% VAGINAL CREAM 45GM VG SCH (22:36)
[2022-05-23] VITALS: BP 125/68
[2022-05-23] MEDS: BLOOD SUGAR DIAGNOSTIC STRIP TEST SCH ×4 (05:23→21:48)
[2022-05-23] MEDS: INSULIN LISPRO 100 UNITS/ML SUBCUT SCH ×4 (05:23→21:47)
[2022-05-23 06:00] VITALS: BP 138/75
[2022-05-23 08:00] VITALS: BP 144/78
[2022-05-23] MEDS: GABAPENTIN 300MG CAPSULE PO SCH ×3 (08:15→18:18)
[2022-05-23] MEDS: ASPIRIN 81MG TABLET PO SCH (08:15)
[2022-05-23] MEDS: POLYETHYLENE GLYCOL 3350 (17GM) 1 DOSE PACK PO SCH (08:16)
[2022-05-23] MEDS: DOCUSATE SODIUM 100MG CAPSULE PO SCH ×2 (08:16→18:18)
[2022-05-23] MEDS: BACLOFEN 10MG TABLET PO SCH (08:16)
[2022-05-23] MEDS: METFORMIN HCL 500MG TABLET PO SCH ×2 (08:16→18:17)
[2022-05-23] MEDS: ENOXAPARIN 30MG/0.3ML SYR SUBCUT SCH (08:17)
[2022-05-23] MEDS: LIDOCAINE 5% PATCH TOP SCH (08:41)
[2022-05-23] MEDS: DICLOFENAC SODIUM 1% GEL 50GM TOP SCH ×4 (08:42→20:58)
[2022-05-23] MEDS: INSULIN GLARGINE 100 UNITS/ML SUBCUT SCH ×2 (10:00→21:48)
[2022-05-23] MEDS: ACETAMINOPHEN 500MG TABLET PO SCH ×3 (11:45→20:57)
[2022-05-23] MEDS: OXYCODONE HCL/ACETAMINOPHEN 5/325MG TABLET PO PRN (11:46)
[2022-05-23 12:00] VITALS: BP 128/74
[2022-05-23 16:00] VITALS: BP 125/68
[2022-05-23 20:00] VITALS: BP 166/85
[2022-05-23] MEDS: ATORVASTATIN CALCIUM 40MG TABLET PO SCH ×2 (20:57→21:00)
[2022-05-23] MEDS: CLOTRIMAZOLE 1% VAGINAL CREAM 45GM VG SCH (20:58)
[2022-05-24 00:13] VITALS: BP 141/71
[2022-05-24] MEDS: ACETAMINOPHEN 500MG TABLET PO SCH ×3 (03:49→21:35)
[2022-05-24] MEDS: BLOOD SUGAR DIAGNOSTIC STRIP TEST SCH ×4 (06:28→21:37)
[2022-05-24 06:57] VITALS: BP 174/81
[2022-05-24] MEDS: INSULIN LISPRO 100 UNITS/ML SUBCUT SCH ×4 (07:50→21:34)
[2022-05-24] MEDS: METFORMIN HCL 500MG TABLET PO SCH ×2 (08:35→18:34)
[2022-05-24] MEDS: DOCUSATE SODIUM 100MG CAPSULE PO SCH ×2 (08:35→18:33)
[2022-05-24] MEDS: BACLOFEN 10MG TABLET PO SCH ×3 (08:35→21:37)
[2022-05-24] MEDS: POLYETHYLENE GLYCOL 3350 (17GM) 1 DOSE PACK PO SCH (08:35)
[2022-05-24] MEDS: GABAPENTIN 300MG CAPSULE PO SCH ×2 (08:35→18:33)
[2022-05-24] MEDS: LIDOCAINE 5% PATCH TOP SCH (08:36)
[2022-05-24] MEDS: DICLOFENAC SODIUM 1% GEL 50GM TOP SCH ×4 (08:40→21:37)
[2022-05-24] MEDS: LACTULOSE 20G/30ML UDC PO SCH (09:30)
[2022-05-24] MEDS: INSULIN GLARGINE 100 UNITS/ML SUBCUT SCH ×2 (10:20→21:33)
[2022-05-24] MEDS ORDERED: APIX5TAB MT (15:02)
[2022-05-24] MEDS ORDERED: BACL-141 PO (15:03)
[2022-05-24] MEDS ORDERED: METF-415 MT (15:03)
[2022-05-24] MEDS: NA PHOS,M-B/NA PHOS,DI-BA ENEMA 118ML PR PRN (15:15)
[2022-05-24] MEDS: RIVAROXABAN 20 MG TABLET PO SCH (18:33)
[2022-05-24 20:00] VITALS: BP 115/68
[2022-05-24] MEDS: ATORVASTATIN CALCIUM 40MG TABLET PO SCH (21:00)
[2022-05-24] MEDS: CLOTRIMAZOLE 1% VAGINAL CREAM 45GM VG SCH (21:37)
[2022-05-25] VITALS: BP_SYST 130; BP_SYST 139; BP_DIAS 55; BP_DIAS 80
[2022-05-25 04:00] VITALS: BP 170/96
[2022-05-25] MEDS: ACETAMINOPHEN 500MG TABLET PO SCH ×2 (04:06→11:16)
[2022-05-25] MEDS: BACLOFEN 10MG TABLET PO SCH ×3 (06:29→20:10)
[2022-05-25] MEDS: BLOOD SUGAR DIAGNOSTIC STRIP TEST SCH ×4 (07:20→20:10)
[2022-05-25 08:00] VITALS: BP 153/76
[2022-05-25] MEDS: DICLOFENAC SODIUM 1% GEL 50GM TOP SCH ×4 (09:00→20:10)
[2022-05-25] MEDS: LACTULOSE 20G/30ML UDC PO SCH (09:00)
[2022-05-25] MEDS: GABAPENTIN 300MG CAPSULE PO SCH ×3 (09:15→17:00)
[2022-05-25] MEDS: POLYETHYLENE GLYCOL 3350 (17GM) 1 DOSE PACK PO SCH (09:15)
[2022-05-25] MEDS: METFORMIN HCL 500MG TABLET PO SCH ×2 (09:15→17:50)
[2022-05-25] MEDS: INSULIN LISPRO 100 UNITS/ML SUBCUT SCH ×4 (09:17→20:21)
[2022-05-25] MEDS: DOCUSATE SODIUM 100MG CAPSULE PO SCH ×2 (09:23→17:00)
[2022-05-25] MEDS: LIDOCAINE 5% PATCH TOP SCH (09:29)
[2022-05-25] MEDS: INSULIN GLARGINE 100 UNITS/ML SUBCUT SCH ×2 (10:42→20:11)
[2022-05-25 12:00] VITALS: BP 129/70
[2022-05-25 16:00] VITALS: BP 130/62
[2022-05-25 16:35] LABS: BASOPHILS % 0.9 % (0.0-2.0); HEMATOCRIT. 38.2 % (36.0-48.0); HEMOGLOBIN. 12.8 g/dL (12.0-16.0); LYMPHOCYTES % 29.1 % (20.0-50.0); MEAN CORPUSCULAR HEMOGLOBIN 29.8 pg (28.0-32.0); MEAN CORPUSCULAR VOLUME 89.1 fL (81.0-99.0); MEAN PLATELET VOLUME 9.4 fl (7.4-10.4); MONOCYTES % 6.9 % (2.0-8.0); NEUTROPHILS % 61.1 % (40.0-76.0); PLATELET 233 x1000/uL (130-400); RED BLOOD CELL COUNT 4.29 mill/uL (4.2-5.4); RED CELL DISTRIBUTION WIDTH 14.3 % (11.6-14.6)
[2022-05-25 16:43] LABS: PROTHROMBIN TIME 11.1 sec (9.6-11.0)
[2022-05-25 16:58] LABS: CHLORIDE 105 mEq/L (98-107)
[2022-05-25] MEDS: RIVAROXABAN 20 MG TABLET PO SCH (17:00)
[2022-05-25] MEDS: ATORVASTATIN CALCIUM 40MG TABLET PO SCH (20:10)
[2022-05-26] VITALS: BP 127/76
[2022-05-26 04:00] VITALS: BP 152/83
[2022-05-26] MEDS: BACLOFEN 10MG TABLET PO SCH ×3 (05:18→22:28)
[2022-05-26] MEDS: BLOOD SUGAR DIAGNOSTIC STRIP TEST SCH ×4 (06:54→21:00)
[2022-05-26 08:00] VITALS: BP 150/81
[2022-05-26] MEDS: DOCUSATE SODIUM 100MG CAPSULE PO SCH ×2 (08:43→18:55)
[2022-05-26] MEDS: GABAPENTIN 300MG CAPSULE PO SCH (08:43)
[2022-05-26] MEDS: METFORMIN HCL 500MG TABLET PO SCH ×2 (08:43→18:55)
[2022-05-26] MEDS: OXYCODONE HCL/ACETAMINOPHEN 5/325MG TABLET PO PRN (08:45)
[2022-05-26] MEDS: LACTULOSE 20G/30ML UDC PO SCH (08:45)
[2022-05-26] MEDS: POLYETHYLENE GLYCOL 3350 (17GM) 1 DOSE PACK PO SCH (09:00)
[2022-05-26] MEDS: LIDOCAINE 5% PATCH TOP SCH (09:00)
[2022-05-26] MEDS: DICLOFENAC SODIUM 1% GEL 50GM TOP SCH ×4 (09:00→21:00)
[2022-05-26] MEDS: INSULIN LISPRO 100 UNITS/ML SUBCUT SCH ×4 (09:09→22:45)
[2022-05-26] MEDS: INSULIN GLARGINE 100 UNITS/ML SUBCUT SCH ×2 (10:44→22:36)
[2022-05-26 12:00] VITALS: BP 129/70
[2022-05-26] MEDS: ACETAMINOPHEN 500MG TABLET PO SCH (13:15)
[2022-05-26] MEDS: GABAPENTIN 400MG CAPSULE PO SCH ×3 (13:15→22:28)
[2022-05-26 16:00] VITALS: BP 135/71
[2022-05-26] MEDS: RIVAROXABAN 20 MG TABLET PO SCH (18:55)
[2022-05-26 20:00] VITALS: BP 146/69
[2022-05-26] MEDS ORDERED: NALOXONE HCL 0.4MG/ML VIAL IV PRN (20:45)
[2022-05-26] MEDS: ATORVASTATIN CALCIUM 40MG TABLET PO SCH (22:28)
[2022-05-27] VITALS (7 sets, daily range): BP systolic 127–166; BP diastolic 70–94
[2022-05-27] MEDS: BACLOFEN 10MG TABLET PO SCH ×3 (06:26→22:17)
[2022-05-27] MEDS: ACETAMINOPHEN 500MG TABLET PO SCH ×3 (06:28→22:18)
[2022-05-27] MEDS: BLOOD SUGAR DIAGNOSTIC STRIP TEST SCH ×4 (06:35→22:19)
[2022-05-27] MEDS: INSULIN LISPRO 100 UNITS/ML SUBCUT SCH ×4 (07:50→22:20)
[2022-05-27] MEDS: LACTULOSE 20G/30ML UDC PO SCH ×2 (09:00→09:07)
[2022-05-27] MEDS: METFORMIN HCL 500MG TABLET PO SCH ×2 (09:06→17:09)
[2022-05-27] MEDS: DICLOFENAC SODIUM 1% GEL 50GM TOP SCH ×4 (09:07→21:00)
[2022-05-27] MEDS: DOCUSATE SODIUM 100MG CAPSULE PO SCH ×2 (09:07→16:25)
[2022-05-27] MEDS: POLYETHYLENE GLYCOL 3350 (17GM) 1 DOSE PACK PO SCH (09:07)
[2022-05-27] MEDS: LIDOCAINE 5% PATCH TOP SCH (09:09)
[2022-05-27] MEDS: OXYCODONE HCL/ACETAMINOPHEN 5/325MG TABLET PO PRN ×2 (09:10→22:18)
[2022-05-27] MEDS: INSULIN GLARGINE 100 UNITS/ML SUBCUT SCH ×2 (10:40→22:21)
[2022-05-27] MEDS: GABAPENTIN 400MG CAPSULE PO SCH ×2 (12:24→17:09)
[2022-05-27] MEDS: RIVAROXABAN 20 MG TABLET PO SCH (17:09)
[2022-05-27] MEDS: ATORVASTATIN CALCIUM 40MG TABLET PO SCH (22:17)
[2022-05-28] VITALS: BP 103/52
[2022-05-28] MEDS: ACETAMINOPHEN 500MG TABLET PO SCH ×3 (03:45→20:33)
[2022-05-28 04:00] VITALS: BP 97/61
[2022-05-28] MEDS: INSULIN LISPRO 100 UNITS/ML SUBCUT SCH ×4 (06:08→21:52)
[2022-05-28] MEDS: BLOOD SUGAR DIAGNOSTIC STRIP TEST SCH ×4 (06:10→20:34)
[2022-05-28] MEDS: BACLOFEN 10MG TABLET PO SCH ×3 (06:10→20:33)
[2022-05-28 08:00] VITALS: BP 130/76
[2022-05-28] MEDS: LIDOCAINE 5% PATCH TOP SCH (08:54)
[2022-05-28] MEDS: POLYETHYLENE GLYCOL 3350 (17GM) 1 DOSE PACK PO SCH (08:54)
[2022-05-28] MEDS: GABAPENTIN 400MG CAPSULE PO SCH ×3 (08:55→17:43)
[2022-05-28] MEDS: DICLOFENAC SODIUM 1% GEL 50GM TOP SCH ×4 (08:55→21:00)
[2022-05-28] MEDS: DOCUSATE SODIUM 100MG CAPSULE PO SCH ×3 (08:55→17:00)
[2022-05-28] MEDS: METFORMIN HCL 500MG TABLET PO SCH ×2 (08:55→18:00)
[2022-05-28] MEDS: LACTULOSE 20G/30ML UDC PO SCH (08:55)
[2022-05-28] MEDS: INSULIN GLARGINE 100 UNITS/ML SUBCUT SCH ×2 (11:34→21:52)
[2022-05-28 12:00] VITALS: BP 131/69
[2022-05-28 16:00] VITALS: BP 132/73
[2022-05-28 17:06] LABS: ANTI-CARDIOLIPIN AB IGA < 9 APL U/mL (0-11); ANTI-CARDIOLIPIN AB IGG < 9 GPL U/mL (0-14); ANTI-CARDIOLIPIN AB IGM < 9 MPL U/mL (0-12)
[2022-05-28] MEDS: RIVAROXABAN 20 MG TABLET PO SCH (17:43)
[2022-05-28 20:00] VITALS: BP 129/69
[2022-05-28] MEDS: ATORVASTATIN CALCIUM 40MG TABLET PO SCH (20:33)
[2022-05-29] VITALS: BP 120/70
[2022-05-29 04:00] VITALS: BP 122/72
[2022-05-29] MEDS: ACETAMINOPHEN 500MG TABLET PO SCH ×2 (04:22→11:45)
[2022-05-29] MEDS: BACLOFEN 10MG TABLET PO SCH ×3 (04:26→22:33)
[2022-05-29] MEDS: BLOOD SUGAR DIAGNOSTIC STRIP TEST SCH ×4 (06:58→21:00)
[2022-05-29 08:00] VITALS: BP 163/80
[2022-05-29] MEDS: METFORMIN HCL 500MG TABLET PO SCH ×2 (08:44→18:14)
[2022-05-29] MEDS: LACTULOSE 20G/30ML UDC PO SCH (09:00)
[2022-05-29] MEDS: POLYETHYLENE GLYCOL 3350 (17GM) 1 DOSE PACK PO SCH (09:00)
[2022-05-29] MEDS: DICLOFENAC SODIUM 1% GEL 50GM TOP SCH ×4 (09:00→21:00)
[2022-05-29] MEDS: INSULIN LISPRO 100 UNITS/ML SUBCUT SCH ×4 (09:06→22:32)
[2022-05-29] MEDS: LIDOCAINE 5% PATCH TOP SCH (09:12)
[2022-05-29] MEDS: GABAPENTIN 400MG CAPSULE PO SCH ×3 (09:12→18:15)
[2022-05-29] MEDS: DOCUSATE SODIUM 100MG CAPSULE PO SCH ×2 (09:12→18:17)
[2022-05-29] MEDS: INSULIN GLARGINE 100 UNITS/ML SUBCUT SCH ×2 (10:27→22:33)
[2022-05-29 12:00] VITALS: BP 151/70
[2022-05-29] MEDS: OXYCODONE HCL/ACETAMINOPHEN 5/325MG TABLET PO PRN (12:21)
[2022-05-29] MEDS ORDERED: ACETAMINOPHEN 325MG TABLET PO PRN (15:00)
[2022-05-29 16:00] VITALS: BP 141/72
[2022-05-29] MEDS: RIVAROXABAN 20 MG TABLET PO SCH (18:15)
[2022-05-29 20:00] VITALS: BP 125/64
[2022-05-29] MEDS: ATORVASTATIN CALCIUM 40MG TABLET PO SCH (21:00)
[2022-05-30] VITALS: BP 116/68
[2022-05-30 04:00] VITALS: BP 144/79
[2022-05-30] MEDS: BACLOFEN 10MG TABLET PO SCH ×3 (06:59→21:04)
[2022-05-30] MEDS: INSULIN LISPRO 100 UNITS/ML SUBCUT SCH ×4 (07:10→22:40)
[2022-05-30] MEDS: BLOOD SUGAR DIAGNOSTIC STRIP TEST SCH ×4 (07:20→21:04)
[2022-05-30 07:58] VITALS: BP 155/78
[2022-05-30] MEDS: METFORMIN HCL 500MG TABLET PO SCH ×2 (08:39→17:46)
[2022-05-30] MEDS: GABAPENTIN 400MG CAPSULE PO SCH ×3 (08:39→17:46)
[2022-05-30] MEDS: LIDOCAINE 5% PATCH TOP SCH (08:43)
[2022-05-30] MEDS: POLYETHYLENE GLYCOL 3350 (17GM) 1 DOSE PACK PO SCH (08:44)
[2022-05-30] MEDS: LACTULOSE 20G/30ML UDC PO SCH (08:44)
[2022-05-30] MEDS: DOCUSATE SODIUM 100MG CAPSULE PO SCH ×2 (08:44→17:46)
[2022-05-30] MEDS: DICLOFENAC SODIUM 1% GEL 50GM TOP SCH ×4 (09:00→21:04)
[2022-05-30] MEDS: INSULIN GLARGINE 100 UNITS/ML SUBCUT SCH ×2 (10:50→22:40)
[2022-05-30 12:00] VITALS: BP 129/71
[2022-05-30 15:58] VITALS: BP 143/70
[2022-05-30] MEDS: RIVAROXABAN 20 MG TABLET PO SCH (17:46)
[2022-05-30] MEDS: ATORVASTATIN CALCIUM 40MG TABLET PO SCH (21:04)
[2022-05-31] VITALS: BP 150/77
[2022-05-31 04:00] VITALS: BP 150/77
[2022-05-31 04:09] LABS: ANA IFA Positive (.)
[2022-05-31] MEDS: BACLOFEN 10MG TABLET PO SCH ×3 (05:41→21:30)
[2022-05-31] MEDS: BLOOD SUGAR DIAGNOSTIC STRIP TEST SCH ×4 (07:20→21:00)
[2022-05-31] MEDS: INSULIN LISPRO 100 UNITS/ML SUBCUT SCH ×4 (07:50→21:39)
[2022-05-31 08:00] VITALS: BP 132/63
[2022-05-31] MEDS: GABAPENTIN 400MG CAPSULE PO SCH ×3 (08:29→17:23)
[2022-05-31] MEDS: METFORMIN HCL 500MG TABLET PO SCH ×2 (08:29→17:23)
[2022-05-31] MEDS: DOCUSATE SODIUM 250MG CAPSULE PO PRN (08:29)
[2022-05-31] MEDS: POLYETHYLENE GLYCOL 3350 (17GM) 1 DOSE PACK PO SCH (08:29)
[2022-05-31] MEDS: LIDOCAINE 5% PATCH TOP SCH (08:30)
[2022-05-31] MEDS: LACTULOSE 20G/30ML UDC PO SCH (08:38)
[2022-05-31] MEDS: DICLOFENAC SODIUM 1% GEL 50GM TOP SCH ×4 (09:00→21:00)
[2022-05-31] MEDS: DOCUSATE SODIUM 100MG CAPSULE PO SCH ×2 (09:00→17:22)
[2022-05-31] MEDS: INSULIN GLARGINE 100 UNITS/ML SUBCUT SCH ×2 (10:00→21:39)
[2022-05-31 12:00] VITALS: BP 141/83
[2022-05-31 16:00] VITALS: BP 146/68
[2022-05-31] MEDS: RIVAROXABAN 20 MG TABLET PO SCH (17:23)
[2022-05-31 20:00] VITALS: BP 116/68
[2022-05-31] MEDS: ATORVASTATIN CALCIUM 40MG TABLET PO SCH (21:30)
[2022-06-01 04:00] VITALS: BP 116/68
[2022-06-01] MEDS: BACLOFEN 10MG TABLET PO SCH ×3 (05:58→22:12)
[2022-06-01] MEDS: BLOOD SUGAR DIAGNOSTIC STRIP TEST SCH ×4 (06:45→21:00)
[2022-06-01] MEDS: INSULIN LISPRO 100 UNITS/ML SUBCUT SCH ×4 (07:50→22:17)
[2022-06-01] MEDS: METFORMIN HCL 500MG TABLET PO SCH ×2 (08:10→17:39)
[2022-06-01 08:15] VITALS: BP 133/70
[2022-06-01] MEDS: LACTULOSE 20G/30ML UDC PO SCH (08:57)
[2022-06-01] MEDS: POLYETHYLENE GLYCOL 3350 (17GM) 1 DOSE PACK PO SCH (08:57)
[2022-06-01] MEDS: DOCUSATE SODIUM 100MG CAPSULE PO SCH ×2 (08:58→17:04)
[2022-06-01] MEDS: GABAPENTIN 400MG CAPSULE PO SCH ×3 (09:02→17:08)
[2022-06-01] MEDS: LIDOCAINE 5% PATCH TOP SCH (09:02)
[2022-06-01] MEDS: DICLOFENAC SODIUM 1% GEL 50GM TOP SCH ×4 (09:04→21:00)
[2022-06-01] MEDS: INSULIN GLARGINE 100 UNITS/ML SUBCUT SCH ×2 (09:45→22:16)
[2022-06-01 12:00] VITALS: BP 128/79
[2022-06-01 16:00] VITALS: BP 136/81
[2022-06-01] MEDS: RIVAROXABAN 20 MG TABLET PO SCH (17:04)
[2022-06-01 20:00] VITALS: BP 122/65
[2022-06-01] MEDS: ATORVASTATIN CALCIUM 40MG TABLET PO SCH (22:12)
[2022-06-02] VITALS: BP 125/68
[2022-06-02 04:00] VITALS: BP 118/70
[2022-06-02] MEDS: BACLOFEN 10MG TABLET PO SCH ×3 (06:00→20:37)
[2022-06-02] MEDS: BLOOD SUGAR DIAGNOSTIC STRIP TEST SCH ×4 (06:30→20:53)
[2022-06-02] MEDS: INSULIN LISPRO 100 UNITS/ML SUBCUT SCH ×4 (06:59→20:53)
[2022-06-02 08:00] VITALS: BP 137/83
[2022-06-02] MEDS: DOCUSATE SODIUM 100MG CAPSULE PO SCH ×2 (08:22→18:20)
[2022-06-02] MEDS: GABAPENTIN 400MG CAPSULE PO SCH ×3 (08:22→18:19)
[2022-06-02] MEDS: METFORMIN HCL 500MG TABLET PO SCH ×2 (08:23→18:19)
[2022-06-02] MEDS: LACTULOSE 20G/30ML UDC PO SCH (08:24)
[2022-06-02] MEDS: POLYETHYLENE GLYCOL 3350 (17GM) 1 DOSE PACK PO SCH (08:24)
[2022-06-02] MEDS: DICLOFENAC SODIUM 1% GEL 50GM TOP SCH ×2 (08:25→21:00)
[2022-06-02] MEDS: LIDOCAINE 5% PATCH TOP SCH (08:25)
[2022-06-02] MEDS: INSULIN GLARGINE 100 UNITS/ML SUBCUT SCH ×2 (10:00→22:16)
[2022-06-02 12:00] VITALS: BP 144/82
[2022-06-02 16:00] VITALS: BP 122/69
[2022-06-02] MEDS: RIVAROXABAN 20 MG TABLET PO SCH (18:20)
[2022-06-02 20:00] VITALS: BP 136/78
[2022-06-02] MEDS: ATORVASTATIN CALCIUM 40MG TABLET PO SCH (20:37)
[2022-06-03] VITALS: BP 113/56
[2022-06-03 04:00] VITALS: BP 138/75
[2022-06-03] MEDS: BACLOFEN 10MG TABLET PO SCH ×3 (05:44→21:03)
[2022-06-03 07:28] LABS: BASOPHILS % 0.3 % (0.0-2.0); EOSINOPHILS % 2.9 % (0.0-5.0); HEMATOCRIT. 40.8 % (36.0-48.0); HEMOGLOBIN. 13.5 g/dL (12.0-16.0); LYMPHOCYTES % 36.1 % (20.0-50.0); MEAN CORPUSCULAR HEMOGLOBIN 29.6 pg (28.0-32.0); MEAN CORPUSCULAR VOLUME 89.4 fL (81.0-99.0); MEAN PLATELET VOLUME 9.2 fl (7.4-10.4); MONOCYTES % 5.7 % (2.0-8.0); PLATELET 261 x1000/uL (130-400); RED BLOOD CELL COUNT 4.56 mill/uL (4.2-5.4); RED CELL DISTRIBUTION WIDTH 14.3 % (11.6-14.6)
[2022-06-03] MEDS: BLOOD SUGAR DIAGNOSTIC STRIP TEST SCH ×4 (07:41→21:02)
[2022-06-03 08:00] VITALS: BP 135/75
[2022-06-03 08:16] LABS: CHLORIDE 104 mEq/L (98-107)
[2022-06-03] MEDS: METFORMIN HCL 500MG TABLET PO SCH ×2 (08:33→18:15)
[2022-06-03] MEDS: DOCUSATE SODIUM 100MG CAPSULE PO SCH ×2 (08:33→18:15)
[2022-06-03] MEDS: GABAPENTIN 400MG CAPSULE PO SCH ×3 (08:33→18:15)
[2022-06-03] MEDS: POLYETHYLENE GLYCOL 3350 (17GM) 1 DOSE PACK PO SCH ×2 (08:34→08:48)
[2022-06-03] MEDS: DICLOFENAC SODIUM 1% GEL 50GM TOP SCH ×4 (08:34→21:03)
[2022-06-03] MEDS: LIDOCAINE 5% PATCH TOP SCH (08:49)
[2022-06-03] MEDS: LACTULOSE 20G/30ML UDC PO SCH (08:49)
[2022-06-03] MEDS: INSULIN LISPRO 100 UNITS/ML SUBCUT SCH ×4 (08:53→21:00)
[2022-06-03] MEDS: INSULIN GLARGINE 100 UNITS/ML SUBCUT SCH ×2 (10:08→21:24)
[2022-06-03] MEDS: OXYCODONE HCL/ACETAMINOPHEN 5/325MG TABLET PO PRN ×2 (11:25→21:03)
[2022-06-03 12:00] VITALS: BP 135/75
[2022-06-03 16:00] VITALS: BP 120/60
[2022-06-03] MEDS: RIVAROXABAN 20 MG TABLET PO SCH (18:15)
[2022-06-03 20:00] VITALS: BP 127/57
[2022-06-03] MEDS: ATORVASTATIN CALCIUM 40MG TABLET PO SCH (21:03)
[2022-06-04] VITALS: BP 120/57
[2022-06-04 04:00] VITALS: BP 117/69
[2022-06-04] MEDS: BACLOFEN 10MG TABLET PO SCH ×4 (05:17→21:46)
[2022-06-04] MEDS: INSULIN LISPRO 100 UNITS/ML SUBCUT SCH ×4 (07:50→21:00)
[2022-06-04] MEDS: BLOOD SUGAR DIAGNOSTIC STRIP TEST SCH ×4 (07:54→21:46)
[2022-06-04 08:00] VITALS: BP 125/69
[2022-06-04] MEDS: GABAPENTIN 400MG CAPSULE PO SCH ×3 (08:44→18:06)
[2022-06-04] MEDS: METFORMIN HCL 500MG TABLET PO SCH ×2 (08:44→18:43)
[2022-06-04] MEDS: DOCUSATE SODIUM 100MG CAPSULE PO SCH ×2 (08:45→17:00)
[2022-06-04] MEDS: POLYETHYLENE GLYCOL 3350 (17GM) 1 DOSE PACK PO SCH (08:45)
[2022-06-04] MEDS: LIDOCAINE 5% PATCH TOP SCH (08:46)
[2022-06-04] MEDS: LACTULOSE 20G/30ML UDC PO SCH (09:00)
[2022-06-04] MEDS: DICLOFENAC SODIUM 1% GEL 50GM TOP SCH ×4 (09:00→21:46)
[2022-06-04] MEDS: INSULIN GLARGINE 100 UNITS/ML SUBCUT SCH ×2 (10:00→22:03)
[2022-06-04] MEDS ORDERED: LIP40 PO (11:53)
[2022-06-04] MEDS ORDERED: RIVA20TA PO (11:53)
[2022-06-04 12:00] VITALS: BP 114/57
[2022-06-04 16:00] VITALS: BP 116/69
[2022-06-04] MEDS ORDERED: NALOXONE HCL 0.4MG/ML VIAL IV PRN (17:15)
[2022-06-04] MEDS: RIVAROXABAN 20 MG TABLET PO SCH (18:06)
[2022-06-04 20:00] VITALS: BP 117/66
[2022-06-04] MEDS: ATORVASTATIN CALCIUM 40MG TABLET PO SCH (21:46)
[2022-06-04] MEDS: OXYCODONE HCL/ACETAMINOPHEN 5/325MG TABLET PO PRN (23:40)
[2022-06-05 04:00] VITALS: BP 117/66
[2022-06-05] MEDS: BACLOFEN 10MG TABLET PO SCH ×2 (06:36→13:12)
[2022-06-05 08:00] VITALS: BP 143/73
[2022-06-05] MEDS: BLOOD SUGAR DIAGNOSTIC STRIP TEST SCH ×2 (08:19→12:19)
[2022-06-05] MEDS: METFORMIN HCL 500MG TABLET PO SCH (08:20)
[2022-06-05] MEDS: GABAPENTIN 400MG CAPSULE PO SCH ×2 (08:20→13:12)
[2022-06-05] MEDS: DOCUSATE SODIUM 100MG CAPSULE PO SCH (08:21)
[2022-06-05] MEDS: INSULIN LISPRO 100 UNITS/ML SUBCUT SCH ×2 (08:34→12:20)
[2022-06-05] MEDS: LIDOCAINE 5% PATCH TOP SCH (08:36)
[2022-06-05] MEDS: LACTULOSE 20G/30ML UDC PO SCH (09:00)
[2022-06-05] MEDS: POLYETHYLENE GLYCOL 3350 (17GM) 1 DOSE PACK PO SCH (09:00)
[2022-06-05] MEDS: DICLOFENAC SODIUM 1% GEL 50GM TOP SCH ×2 (09:26→13:12)
[2022-06-05] MEDS: INSULIN GLARGINE 100 UNITS/ML SUBCUT SCH (10:47)
[2022-06-05 12:00] VITALS: BP 143/88
[2022-06-05 12:05] VITALS: BP 143/88
[2022-06-05] MEDS: OXYCODONE HCL/ACETAMINOPHEN 5/325MG TABLET PO PRN (15:50)
[2022-06-05 16:00] VITALS: BP 138/74
[2022-06-07] MEDS ORDERED: CLOPIDOGREL 75MG TABLET PO SCH (09:00)
== END 2022-06-05 15:58 | disposition home health service (06) | DRG 45 ==
LOC: ER 13:56 → 8WST 05-16 02:56 → EDBEDREQ 05-16 02:58 → 6EST 05-22 10:58
PROVIDERS: ADMIT Internal Medicine; ATTEND Internal Medicine
PROC: 3E0233Z Introduction of Anti-inflammatory into Muscle, Percutaneous Approach (ICD-10-PCS; principal; 2022-05-25)
PROC: 3E023BZ Introduction of Anesthetic Agent into Muscle, Percutaneous Approach (ICD-10-PCS; 2022-05-25)
DX: I63.511 Cerebral infarction due to unspecified occlusion or stenosis of right middle cerebral artery (principal); E44.1 Mild protein-calorie malnutrition; G81.94 Hemiplegia, unspecified affecting left nondominant side; R41.4 Neurologic neglect syndrome; R47.01 Aphasia; I10 Essential (primary) hypertension; E66.01 Morbid (severe) obesity due to excess calories; E11.9 Type 2 diabetes mellitus without complications; M25.512 Pain in left shoulder; E83.52 Hypercalcemia; Z20.822 Contact with and (suspected) exposure to COVID-19; R47.1 Dysarthria and anarthria; E78.5 Hyperlipidemia, unspecified; G89.0 Central pain syndrome; R13.10 Dysphagia, unspecified; Z88.8 Allergy status to other drugs, medicaments and biological substances; Z79.899 Other long term (current) drug therapy; Z79.01 Long term (current) use of anticoagulants; Z68.42 Body mass index [BMI] 45.0-49.9, adult; Z85.41 Personal history of malignant neoplasm of cervix uteri; Z86.011 Personal history of benign neoplasm of the brain; Z82.49 Family history of ischemic heart disease and other diseases of the circulatory system
CPT/HCPCS: 36415; 70496; 70498; 70551; 70552; 71045; 72040; 73030; 80048; 80053; 80061; 81003; 82962; 83036; 84443; 84484; 85025; 86147; 86256; 87426; 92523; 92610; 93005; 93306; 93971; 97110; 97112; 97162; 97166; 97530; 97535; 99285; A4565; A6261; A9577; C1893; C9803; J1650; J1815; J1885; J2060; J2270; J2405; J7030; Q9967

== ENCOUNTER 2022-11-12 16:02 | Emergency (ER) | payer MEDICAID, OTHER ==
[~2022-11-12] VITALS: Ht 167.6 cm; Wt 87.0 kg
[~2022-11-12 16:02] MED LIST changes: -APIX5TAB PO; +BACL-141 PO; +GABA-532 MT; +LEVO-65 MT; +LIP40 PO; +LISI-652 MT; -METF-414 PO; +METF-415 MT; +RIVA20TA PO
[2022-11-12 16:04] VITALS: O2SAT 100
[2022-11-12] MEDS ORDERED: KETOROLAC 30MG/ML VIAL IV STA (16:58)
[2022-11-12] MEDS ORDERED: SODIUM CHLORIDE 0.9% 1,000 ML IV ONE (17:00)
[2022-11-12 17:21] LABS: BASOPHILS % 0.9 % (0.0-2.0); EOSINOPHILS % 2.3 % (0.0-5.0); HEMATOCRIT. 40.1 % (36.0-48.0); HEMOGLOBIN. 13.4 g/dL (12.0-16.0); MEAN CORPUSCULAR HEMOGLOBIN 31.6 pg (28.0-32.0); MEAN CORPUSCULAR VOLUME 94.5 fL (81.0-99.0); MEAN PLATELET VOLUME 9.4 fl (7.4-10.4); MONOCYTES % 5.6 % (2.0-8.0); NEUTROPHILS % 58.2 % (40.0-76.0); PLATELET 274 x1000/uL (130-400); RED BLOOD CELL COUNT 4.24 mill/uL (4.2-5.4); RED CELL DISTRIBUTION WIDTH 14.4 % (11.6-14.6)
[2022-11-12 17:31] LABS: CHLORIDE 109 mEq/L (98-107)
[2022-11-12 20:15] LABS: INR 1.1; PROTHROMBIN TIME 11.9 sec (9.6-11.0)
[2022-11-12] MEDS ORDERED: KETOROLAC 30MG/ML VIAL IV NR (20:15)
[2022-11-12] MEDS ORDERED: NAPR-681 MT (21:45)
[2022-11-12] MEDS ORDERED: CIPR-263 MT (21:45)
[2022-11-13 09:20] VITALS: BP 140/80; PULSE 70; RESP 17; TEMP 98.4
== END 2022-11-13 09:20 | disposition home or self-care (01) ==
LOC: ER 16:31
DX: N20.0 Calculus of kidney (principal); I48.91 Unspecified atrial fibrillation; E11.9 Type 2 diabetes mellitus without complications; E78.00 Pure hypercholesterolemia, unspecified; I10 Essential (primary) hypertension; Z86.73 Personal history of transient ischemic attack (TIA), and cerebral infarction without residual deficits; Z90.49 Acquired absence of other specified parts of digestive tract
CPT/HCPCS: 80053; 85025; 85610; 36415; 74176; 96361; 96374; 99285; J1885; J7030; Z7610 ×5

== ENCOUNTER 2023-05-15 15:45 | Emergency (ER) | payer MEDICAID ==
[~2023-05-15] VITALS: Ht 165.1 cm; Wt 77.0 kg
[~2023-05-15 15:45] MED LIST changes: +CIPR-263 MT; -MECL-159 PO; +MECL-299 PO; +NAPR-681 MT
[2023-05-15 15:51] VITALS: O2SAT 95
[2023-05-15] MEDS ORDERED: xarelto (15:51)
[2023-05-15 19:52] LABS: BASOPHILS % 0.8 % (0.0-2.0); EOSINOPHILS % 1.4 % (0.0-5.0); HEMATOCRIT. 41.5 % (36.0-48.0); LYMPHOCYTES % 42.9 % (20.0-50.0); MEAN CORPUSCULAR HEMOGLOBIN 30.5 pg (28.0-32.0); MEAN CORPUSCULAR HGB CONC 33.8 g/dL (31.0-37.0); MEAN CORPUSCULAR VOLUME 90.2 fL (81.0-99.0); MEAN PLATELET VOLUME 8.9 fl (7.4-10.4); MONOCYTES % 6.3 % (2.0-8.0); NEUTROPHILS % 48.6 % (40.0-76.0); PLATELET 232 x1000/uL (130-400); RED CELL DISTRIBUTION WIDTH 14.9 % (11.6-14.6); WHITE BLOOD COUNT 5.7 x1000/uL (4.5-11.0)
[2023-05-15 20:09] LABS: ALANINE AMINOTRANSFERASE 31 IU/L (10-49); ALBUMIN 3.8 g/dL (3.2-4.8); ASPARTATE AMINOTRANSFERASE 22 IU/L (<34); BILIRUBIN TOTAL 0.7 mg/dL (0.1-1.0); CALCIUM 9.8 mg/dL (8.7-10.4); CARBON DIOXIDE 28 mEq/L (21-32); CHLORIDE 107 mEq/L (98-107); CREATININE 0.4 mg/dL (0.6-1.0); GLUCOSE 131 mg/dL (70-105); POTASSIUM 3.8 mEq/L (3.5-5.1); PROTEIN TOTAL 6.5 g/dL (6.0-8.3); SODIUM 140 mEq/L (136-145); UREA NITROGEN BLOOD 18 mg/dL (9-23)
[2023-05-15] MEDS ORDERED: ACETAMINOPHEN 325MG TABLET PO ONE (23:15)
[2023-05-15] MEDS ORDERED: MINERAL OIL ENEMA 133ML PR ONE (23:15)
[2023-05-15 23:21] LABS: CLARITY URINE CLOUDY (CLEAR); COLOR URINE DARK YELLOW (YELLOW); GLUCOSE URINE TRACE (NEGATIVE); KETONES URINE TRACE (NEGATIVE); LEUKOCYTE ESTERASE URINE 1+ (NEGATIVE); NITRITE URINE NEGATIVE (NEGATIVE); OCCULT BLOOD URINE TRACE (NEGATIVE); PROTEIN URINE TRACE (NEGATIVE)
[2023-05-15 23:42] LABS: BACTERIA URINE 2+; RBC URINE 0-2 /hpf (0-2); SQUAMOUS EPITHELIAL CELL URINE 2+ /lpf (RARE/1+)
[2023-05-15 23:43] LABS: CALCIUM OXALATE CRYSTALS URINE 1+ /lpf
[2023-05-15] MEDS ORDERED: POLY119P2 MT (23:45)
[2023-05-15] MEDS ORDERED: CEFTRIAXONE SODIUM 1 G/VIAL IM ONE (23:45)
[2023-05-15] MEDS ORDERED: CEFP200T13 MT (23:45)
[2023-05-15] MEDS ORDERED: LIDOCAINE HCL 1% 20ML VIAL (Pyxis) INJ INFIL ONE (23:45)
[2023-05-15] MEDS ORDERED: FEO PR (23:45)
[2023-05-16 10:00] VITALS: BP 139/86; PULSE 89; RESP 20; TEMP 98
== END 2023-05-16 09:58 | disposition home or self-care (01) ==
LOC: ER 15:45
DX: R30.0 Dysuria (principal); E78.00 Pure hypercholesterolemia, unspecified; I10 Essential (primary) hypertension; E11.9 Type 2 diabetes mellitus without complications; Z90.49 Acquired absence of other specified parts of digestive tract; Z88.9 Allergy status to unspecified drugs, medicaments and biological substances; Z79.899 Other long term (current) drug therapy; Z98.890 Other specified postprocedural states; Z86.73 Personal history of transient ischemic attack (TIA), and cerebral infarction without residual deficits
CPT/HCPCS: 99285; 74176; 80053; 81003; 83690; 85025; 36415; 96372; J0696

== ENCOUNTER 2024-02-10 18:57 | Inpatient (IN) | payer OTHER ==
[~2024-02-10] VITALS: Ht 162.6 cm; Wt 61.2 kg
[~2024-02-10 18:57] MED LIST changes: +CEFP200T13 MT; +FEO PR; +POLY119P2 MT; +xarelto
[2024-02-10] MEDS: ACETAMINOPHEN 325MG TABLET PO STA (20:26)
[2024-02-10 22:02] LABS: BASOPHILS % 0.8 % (0.0-2.0); EOSINOPHILS % 1.8 % (0.0-5.0); HEMATOCRIT. 44.1 % (36.0-48.0); HEMOGLOBIN. 14.2 g/dL (12.0-16.0); LYMPHOCYTES % 40.3 % (20.0-50.0); MEAN CORPUSCULAR HEMOGLOBIN 29.2 pg (28.0-32.0); MEAN CORPUSCULAR HGB CONC 32.2 g/dL (31.0-37.0); MEAN CORPUSCULAR VOLUME 90.9 fL (81.0-99.0); MEAN PLATELET VOLUME 8.8 fl (7.4-10.4); MONOCYTES % 5.5 % (2.0-8.0); NEUTROPHILS % 51.6 % (40.0-76.0); PLATELET 217 x1000/uL (130-400); RED BLOOD CELL COUNT 4.86 mill/uL (4.2-5.4); RED CELL DISTRIBUTION WIDTH 13.6 % (11.6-14.6); WHITE BLOOD COUNT 5.7 x1000/uL (4.5-11.0)
[2024-02-10 22:06] LABS: CHLORIDE 106 mEq/L (98-107); SODIUM 139 mEq/L (136-145)
[2024-02-10 22:07] LABS: CARBON DIOXIDE 29 mEq/L (21-32)
[2024-02-10 22:12] LABS: CREATININE 0.5 mg/dL (0.6-1.0); GLUCOSE 133 mg/dL (70-105); UREA NITROGEN BLOOD 14 mg/dL (9-23)
[2024-02-10 22:24] LABS: PROTHROMBIN TIME 11.1 sec (9.6-11.0)
[2024-02-11] MEDS: DIPHENHYDRAMINE 25MG CAPSULE PO ONE
[2024-02-11] MEDS ORDERED: ENOXAPARIN 40MG/0.4ML SYR SUBCUT SCH (03:00)
[2024-02-11] MEDS ORDERED: GUAIFENESIN 200MG/10ML SUGAR FREE UDC PO PRN (03:00)
[2024-02-11] MEDS ORDERED: HYDRALAZINE 20MG/ML VIAL IV PRN (03:00)
[2024-02-11] MEDS ORDERED: IPRATROPIUM/ALBUTEROL 0.5-3(2.5)MG/3ML NEB HHN PRN (03:00)
[2024-02-11] MEDS ORDERED: ONDANSETRON HCL 4MG/2ML INJ IV PRN (03:00)
[2024-02-11] MEDS ORDERED: MAGNESIUM/ALUMINUM HYDROXIDE/SIMETHICONE 30ML UDC PO PRN (03:00)
[2024-02-11] MEDS ORDERED: ACETAMINOPHEN 325MG TABLET PO PRN (03:00)
[2024-02-11] MEDS: AMLODIPINE 5MG TABLET PO NR (03:15)
[2024-02-11 04:10] LABS: *AMPHETAMINES SCREEN URINE NEGATIVE (NEGATIVE); *BARBITURATES SCREEN URINE NEGATIVE (NEGATIVE); *BENZODIAZEPINES SCREEN URINE NEGATIVE (NEGATIVE)
[2024-02-11 04:11] LABS: *COCAINE SCREEN URINE NEGATIVE (NEGATIVE); CANNABINOID URINE SCREEN NEGATIVE (NEGATIVE); ECSTASY MDMA SCREEN URINE NEGATIVE (NEGATIVE); METHADONE URINE SCREEN NEGATIVE (NEGATIVE); OPIATES URINE SCREEN NEGATIVE (NEGATIVE); PHENCYCLIDINE URINE SCREEN NEGATIVE (NEGATIVE)
[2024-02-11 04:14] LABS: CLARITY URINE CLEAR (CLEAR); COLOR URINE YELLOW (YELLOW); GLUCOSE URINE NEGATIVE (NEGATIVE); KETONES URINE NEGATIVE (NEGATIVE); LEUKOCYTE ESTERASE URINE 1+ (NEGATIVE); NITRITE URINE NEGATIVE (NEGATIVE); OCCULT BLOOD URINE NEGATIVE (NEGATIVE); PROTEIN URINE NEGATIVE (NEGATIVE); SPECIFIC GRAVITY URINE 1.017 (1.005-1.030)
[2024-02-11 04:41] LABS: WBC URINE 0-2 /hpf (0-2)
[2024-02-11 04:42] LABS: BACTERIA URINE TRACE; RBC URINE NONE SEEN /hpf (0-2); SQUAMOUS EPITHELIAL CELL URINE FEW /lpf (RARE/1+)
[2024-02-11 06:29] LABS: BASOPHILS % 0.9 % (0.0-2.0); EOSINOPHILS % 2.9 % (0.0-5.0); HEMATOCRIT. 42.4 % (36.0-48.0); HEMOGLOBIN. 14.3 g/dL (12.0-16.0); LYMPHOCYTES % 39.7 % (20.0-50.0); MEAN CORPUSCULAR HEMOGLOBIN 29.9 pg (28.0-32.0); MEAN CORPUSCULAR HGB CONC 33.7 g/dL (31.0-37.0); MEAN CORPUSCULAR VOLUME 88.9 fL (81.0-99.0); MEAN PLATELET VOLUME 8.5 fl (7.4-10.4); MONOCYTES % 6.3 % (2.0-8.0); NEUTROPHILS % 50.2 % (40.0-76.0); PLATELET 236 x1000/uL (130-400); RED BLOOD CELL COUNT 4.77 mill/uL (4.2-5.4); RED CELL DISTRIBUTION WIDTH 13.9 % (11.6-14.6); WHITE BLOOD COUNT 5.3 x1000/uL (4.5-11.0)
[2024-02-11 06:39] LABS: CARBON DIOXIDE 30 mEq/L (21-32); CHLORIDE 106 mEq/L (98-107); POTASSIUM 3.7 mEq/L (3.5-5.1); SODIUM 140 mEq/L (136-145)
[2024-02-11 06:42] LABS: TROPONIN I HIGH SENSITIVITY 16 ng/L (3.0-34)
[2024-02-11 06:44] LABS: CREATININE 0.5 mg/dL (0.6-1.0); GLUCOSE 125 mg/dL (70-105)
[2024-02-11 06:45] LABS: CREATINE KINASE 39 IU/L (34-145); T4 FREE 1.65 ng/dL (0.89-1.76); TRIGLYCERIDE 109 mg/dL (0-150); UREA NITROGEN BLOOD 16 mg/dL (9-23)
[2024-02-11 06:46] LABS: LDL CHOLESTEROL 103 mg/dL (5-100); THYROID STIMULATING HORMONE 1.39 uIU/mL (0.55-4.78)
[2024-02-11 06:47] LABS: CHOLESTEROL 151 mg/dL (<200); HDL CHOLESTEROL 40 mg/dL (>65)
[2024-02-11] MEDS: SODIUM CHLORIDE 0.9% 500 ML IV ONE (07:43)
[2024-02-11] MEDS: ASPIRIN 81MG EC TABLET PO SCH (09:00)
[2024-02-11] MEDS: FAMOTIDINE 20MG TABLET PO SCH (09:00)
[2024-02-11] MEDS: KETOROLAC 15MG/ML VIAL IV PRN (15:35)
[2024-02-11] MEDS: RIVAROXABAN 20 MG TABLET PO SCH (16:31)
[2024-02-11 17:31] LABS: CREATINE KINASE 35 IU/L (34-145); TROPONIN I HIGH SENSITIVITY 13 ng/L (3.0-34)
[2024-02-11] MEDS: ATORVASTATIN CALCIUM 40MG TABLET PO SCH (20:36)
[2024-02-11 21:14] VITALS: BP 126/75; PULSE 70; RESP 17; TEMP 36.974
[2024-02-12] MEDS: AMLODIPINE 10MG TABLET PO SCH (09:38)
[2024-02-12 12:00] VITALS: BP 125/61; PULSE 66; RESP 18; TEMP 36.61404; O2SAT 96
[2024-02-12] MEDS ORDERED: LOSA25TA26 PO (14:44)
[2024-02-12] MEDS ORDERED: METF-414 PO (14:58)
[2024-02-12 16:00] VITALS: BP 113/70; PULSE 72; RESP 18; TEMP 36.44736; O2SAT 96
[2024-02-12] MEDS: DOCUSATE SODIUM 100MG CAPSULE PO PRN (17:17)
[2024-02-12 20:00] VITALS: BP 139/73; PULSE 77; RESP 18; TEMP 36.61404; O2SAT 97
[2024-02-13] VITALS: BP 112/64; PULSE 77; RESP 18; TEMP 36.55848; O2SAT 98
[2024-02-13 04:00] VITALS: BP 120/77; PULSE 78; RESP 18; TEMP 36.9474; O2SAT 100
[2024-02-13 08:00] VITALS: BP 123/68; PULSE 68; RESP 18; TEMP 36.55848; O2SAT 96
[2024-02-13 08:29] LABS: CHLORIDE 108 mEq/L (98-107); POTASSIUM 4.2 mEq/L (3.5-5.1); SODIUM 139 mEq/L (136-145)
[2024-02-13 08:30] LABS: CARBON DIOXIDE 27 mEq/L (21-32)
[2024-02-13 08:35] LABS: CREATININE 0.6 mg/dL (0.6-1.0); GLUCOSE 134 mg/dL (70-105); UREA NITROGEN BLOOD 18 mg/dL (9-23)
[2024-02-13 08:36] LABS: BASOPHILS % 0.7 % (0.0-2.0); EOSINOPHILS % 3.3 % (0.0-5.0); HEMATOCRIT. 41.2 % (36.0-48.0); HEMOGLOBIN. 13.2 g/dL (12.0-16.0); LYMPHOCYTES % 42.8 % (20.0-50.0); MEAN CORPUSCULAR HEMOGLOBIN 29.1 pg (28.0-32.0); MEAN CORPUSCULAR VOLUME 90.8 fL (81.0-99.0); MEAN PLATELET VOLUME 8.7 fl (7.4-10.4); MONOCYTES % 7.3 % (2.0-8.0); NEUTROPHILS % 45.9 % (40.0-76.0); PLATELET 211 x1000/uL (130-400); RED BLOOD CELL COUNT 4.54 mill/uL (4.2-5.4); RED CELL DISTRIBUTION WIDTH 13.7 % (11.6-14.6); WHITE BLOOD COUNT 4.7 x1000/uL (4.5-11.0)
[2024-02-13] MEDS: RIVAROXABAN 15 MG TABLET PO SCH (09:21)
[2024-02-13 12:00] VITALS: BP 116/68; PULSE 79; RESP 19; TEMP 36.55848; O2SAT 97
[2024-02-13] MEDS ORDERED: TOPUD PO (12:11)
[2024-02-13] MEDS ORDERED: FAMO20TA8 PO (12:11)
[2024-02-13] MEDS ORDERED: RIVA20TA MT (12:11)
[2024-02-13] MEDS ORDERED: XAR15 PO (12:11)
[2024-02-13] MEDS ORDERED: AMLO10TA80 PO (12:11)
[2024-02-13] MEDS ORDERED: LIP40 PO (12:11)
[2024-02-13] MEDS ORDERED: DOCU250C69 PO (12:26)
[2024-02-13 16:00] VITALS: BP 100/57; PULSE 73; RESP 18; TEMP 36.33624; O2SAT 97
[2024-02-13] MEDS ORDERED: SULF1TAB48 PO (16:14)
[2024-02-13 20:00] VITALS: BP 112/60; PULSE 69; RESP 18; TEMP 36.78072; O2SAT 99
[2024-02-13] MEDS ORDERED: LACTULOSE 20G/30ML UDC PO NR (23:00)
[2024-02-13] MEDS: LACTULOSE 20G/30ML UDC PO NR (23:04)
[2024-02-14] VITALS: BP 115/68; PULSE 79; RESP 18; TEMP 36.72516; O2SAT 98
[2024-02-14 04:00] VITALS: BP 141/89; PULSE 84; RESP 18; TEMP 36.72516; O2SAT 100
[2024-02-14 08:00] VITALS: BP 127/73; PULSE 74; RESP 18; TEMP 36.44736; O2SAT 98
[2024-02-14 12:00] VITALS: BP 105/57; PULSE 64; RESP 18; TEMP 36.44736; O2SAT 96
[2024-02-14] MEDS: ACETAMINOPHEN 325MG TABLET PO PRN (14:13)
[2024-02-14] MEDS ORDERED: POLY17PO3 PO (14:28)
[2024-02-14 16:00] VITALS: BP 104/57; PULSE 65; RESP 18; TEMP 36.55848; O2SAT 98
[2024-02-14 20:00] VITALS: BP 113/52; PULSE 71; RESP 20; TEMP 36.3918; TEMP 36.50292; O2SAT 95; O2SAT 97
[2024-02-14] MEDS: KETOROLAC 15MG/ML VIAL IV PRN (22:42)
[2024-02-15] VITALS: BP 95/50; PULSE 68; RESP 20; TEMP 36.55848; O2SAT 96
[2024-02-15 04:00] VITALS: BP 110/61; PULSE 66; RESP 20; TEMP 36.61404; O2SAT 98
[2024-02-15] MEDS: MECLIZINE 12.5MG TABLET PO PRN (06:09)
[2024-02-15 08:00] VITALS: BP 109/60; PULSE 67; RESP 16; TEMP 36.28068; O2SAT 96
[2024-02-15 12:00] VITALS: BP 101/54; PULSE 62; RESP 16; TEMP 36.89184; O2SAT 96
[2024-02-15 16:00] VITALS: BP 114/56; PULSE 62; RESP 18; TEMP 36.89184; O2SAT 95
[2024-02-15 20:00] VITALS: BP 124/60; PULSE 70; RESP 18; TEMP 36.3918; O2SAT 96
[2024-02-16] VITALS: BP 103/58; PULSE 92; RESP 18; TEMP 36.55848; O2SAT 97
[2024-02-16 04:00] VITALS: BP 104/61; PULSE 59; RESP 19; TEMP 36.16956; O2SAT 96
[2024-02-16 08:00] VITALS: BP 113/62; PULSE 59; RESP 18; TEMP 36.114; O2SAT 96
[2024-02-16 12:00] VITALS: BP 114/52; PULSE 57; RESP 15; TEMP 36.61404; O2SAT 98
[2024-02-16 16:00] VITALS: BP 100/45; PULSE 69; RESP 18; TEMP 36.28068; O2SAT 94
[2024-02-16 20:00] VITALS: BP 127/68; PULSE 66; RESP 19; TEMP 36.83628; O2SAT 99
[2024-02-17] VITALS: BP 112/61; PULSE 56; RESP 19; TEMP 36.72516; O2SAT 100
[2024-02-17] MEDS: MELATONIN 3MG TABLET PO NR (02:19)
[2024-02-17 04:00] VITALS: BP 105/52; PULSE 57; RESP 19; TEMP 36.72516; O2SAT 98
[2024-02-17 08:00] VITALS: BP 98/52; PULSE 50; RESP 18; TEMP 36.61404; O2SAT 99
[2024-02-17 12:00] VITALS: BP 116/61; PULSE 60; RESP 15; TEMP 36.16956; O2SAT 97
[2024-02-17 16:00] VITALS: BP 125/61; PULSE 68; RESP 20; TEMP 36.44736; O2SAT 95
[2024-02-17 17:16] VITALS: BP 136/80; PULSE 62; RESP 20; TEMP 97.9; O2SAT 97
[2024-02-17] MEDS ORDERED: MELATONIN 3MG TABLET PO SCH (21:00)
== END 2024-02-17 18:30 | disposition home health service (06) | DRG 111 ==
LOC: ER 18:57 → 5WST 02-11 01:09 → 7EST 02-11 18:10
PROVIDERS: ADMIT Internal Medicine; ATTEND Internal Medicine
DX: H81.13 Benign paroxysmal vertigo, bilateral (principal); I82.433 Acute embolism and thrombosis of popliteal vein, bilateral; I69.354 Hemiplegia and hemiparesis following cerebral infarction affecting left non-dominant side; I48.91 Unspecified atrial fibrillation; Z20.822 Contact with and (suspected) exposure to COVID-19; K59.00 Constipation, unspecified; E11.9 Type 2 diabetes mellitus without complications; I10 Essential (primary) hypertension; Z74.01 Bed confinement status; Z79.82 Long term (current) use of aspirin; Z79.84 Long term (current) use of oral hypoglycemic drugs; Z79.899 Other long term (current) drug therapy; Z79.01 Long term (current) use of anticoagulants; Z88.8 Allergy status to other drugs, medicaments and biological substances
CPT/HCPCS: 36415; 80048; 80061; 80305; 81003; 82550; 82962; 83036; 84145; 84439; 84443; 84484; 85025; 87426; 93005; 93880; 93970; 97162; 97166; 99285; J1885; J7040; J8597; Q0163

== ENCOUNTER 2024-04-14 12:20 | Inpatient (IN) | payer OTHER ==
[~2024-04-14] VITALS: Ht 167.6 cm; Wt 112.7 kg
[~2024-04-14 12:20] MED LIST changes: +AMLO10TA80 PO; -ATOR10TA MT; -BACL-141 PO; -CEFP200T13 MT; -CIPR-263 MT; +DOCU-405 PO; -ERTU5TAB PO; +FAMO20TA8 PO; -FEO PR; -GABA-532 MT; -HYDR-4001 MT; -LEVO-65 MT; -LISI-652 MT; -MECL-299 PO; +METF-414 PO; -METF-415 MT; -NAPR-681 MT; -POLY119P2 MT; +POLY17PO3 PO; +RIVA20TA MT; -RIVA20TA PO; +SULF1TAB48 PO; -SUMA50TA16 PO; -TOPI100T37 PO; +TOPUD PO; +XAR15 PO; -xarelto
[2024-04-14] MEDS: TRAMADOL HCL/ACETAMINOPHEN 37.5/325MG TABLET PO ONE (13:18)
[2024-04-14 22:16] VITALS: BP 131/65; PULSE 67; RESP 18; TEMP 36.55848; O2SAT 98
[2024-04-14 23:00] VITALS: BP 127/67; PULSE 64; RESP 18; TEMP 36.418
[2024-04-14] MEDS ORDERED: DEXTROSE 50% WATER 50ML SYRINGE IV PRN (23:45)
[2024-04-15] MEDS ORDERED: LORA10TA7 PO (00:05)
[2024-04-15] MEDS ORDERED: GABA-290 PO (00:05)
[2024-04-15] MEDS ORDERED: LOSA50TA41 PO (00:05)
[2024-04-15 00:18] LABS: BASOPHILS % 0.4 % (0.0-2.0); EOSINOPHILS % 3.5 % (0.0-5.0); HEMATOCRIT. 39.8 % (36.0-48.0); MEAN CORPUSCULAR HEMOGLOBIN 29.8 pg (28.0-32.0); MEAN CORPUSCULAR HGB CONC 32.8 g/dL (31.0-37.0); MEAN CORPUSCULAR VOLUME 90.9 fL (81.0-99.0); MEAN PLATELET VOLUME 8.4 fl (7.4-10.4); MONOCYTES % 5.7 % (2.0-8.0); NEUTROPHILS % 46.4 % (40.0-76.0); PLATELET 159 x1000/uL (130-400); RED BLOOD CELL COUNT 4.37 mill/uL (4.2-5.4); RED CELL DISTRIBUTION WIDTH 13.8 % (11.6-14.6); WHITE BLOOD COUNT 5.4 x1000/uL (4.5-11.0)
[2024-04-15 00:23] LABS: CHLORIDE 108 mEq/L (98-107); SODIUM 142 mEq/L (136-145)
[2024-04-15] MEDS: HYDROCODONE/ACETAMINOPHEN 10/325MG TABLET PO PRN (00:23)
[2024-04-15 00:24] LABS: CALCIUM 9.7 mg/dL (8.7-10.4); CARBON DIOXIDE 29 mEq/L (21-32)
[2024-04-15 00:29] LABS: CREATININE 0.7 mg/dL (0.6-1.0); GLUCOSE 127 mg/dL (70-105); TRIGLYCERIDE 80 mg/dL (0-150); UREA NITROGEN BLOOD 25 mg/dL (9-23)
[2024-04-15 00:30] LABS: LDL CHOLESTEROL 98 mg/dL (5-100)
[2024-04-15 00:31] LABS: ALANINE AMINOTRANSFERASE 25 IU/L (10-49); ALBUMIN 3.5 g/dL (3.2-4.8); ASPARTATE AMINOTRANSFERASE 16 IU/L (<34); BILIRUBIN TOTAL 0.4 mg/dL (0.1-1.0); CHOLESTEROL 159 mg/dL (<200); HDL CHOLESTEROL 45 mg/dL (>65); PROTEIN TOTAL 5.7 g/dL (6.0-8.3)
[2024-04-15 03:55] VITALS: BP 106/70; PULSE 72; RESP 18; TEMP 36.44736; O2SAT 99
[2024-04-15] MEDS: BLOOD SUGAR DIAGNOSTIC STRIP TEST SCH (06:42)
[2024-04-15] MEDS ORDERED: FAMOTIDINE 20MG TABLET PO SCH (09:00)
[2024-04-15 09:45] VITALS: BP 126/88; PULSE 74; RESP 18; TEMP 36.114; O2SAT 100
[2024-04-15] MEDS: LOSARTAN 50 MG TABLET PO SCH (09:54)
[2024-04-15] MEDS: AMLODIPINE 10MG TABLET PO SCH (09:55)
[2024-04-15] MEDS: FAMOTIDINE 20MG TABLET PO SCH (09:56)
[2024-04-15 12:00] VITALS: BP 119/54; PULSE 66; RESP 20; TEMP 36.50292; O2SAT 100
[2024-04-15] MEDS: INSULIN LISPRO 100 UNITS/ML SUBCUT SCH (12:54)
[2024-04-15 16:00] VITALS: BP 126/55; PULSE 62; RESP 20; TEMP 36.55848; O2SAT 100
[2024-04-15] MEDS: ONDANSETRON HCL 4MG/2ML INJ IV PRN (17:06)
[2024-04-15] MEDS: RIVAROXABAN 20 MG TABLET PO SCH (17:06)
[2024-04-15 17:21] VITALS: BP 108/57; PULSE 59; RESP 18; TEMP 36.22512
[2024-04-15 20:00] VITALS: BP 118/65; PULSE 67; RESP 19; TEMP 36.9474; O2SAT 97
[2024-04-15] MEDS ORDERED: ATORVASTATIN CALCIUM 40MG TABLET PO SCH (21:00)
[2024-04-15] MEDS: ZOLPIDEM TARTRATE 5MG TABLET PO PRN (21:07)
[2024-04-15] MEDS: ATORVASTATIN CALCIUM 40MG TABLET PO SCH (21:08)
[2024-04-16] VITALS (7 sets, daily range): BP systolic 82–136; BP diastolic 45–84; PULSE 63–71; RESP 18–20; TEMP 36.3918–37.16964; O2SAT 94–100
[2024-04-16] MEDS: LIDOCAINE 5% PATCH TOP SCH (21:40)
[2024-04-17] VITALS: BP 105/56; PULSE 57; RESP 17; TEMP 36.22512; O2SAT 96
[2024-04-17 04:00] VITALS: BP 125/71; PULSE 60; RESP 18; TEMP 36.114; O2SAT 98
[2024-04-17 05:39] LABS: CLARITY URINE CLEAR (CLEAR); COLOR URINE YELLOW (YELLOW); GLUCOSE URINE NEGATIVE (NEGATIVE); KETONES URINE NEGATIVE (NEGATIVE); LEUKOCYTE ESTERASE URINE 2+ (NEGATIVE); NITRITE URINE NEGATIVE (NEGATIVE); OCCULT BLOOD URINE TRACE (NEGATIVE); PH URINE 5.5 (4.5-8.0); PROTEIN URINE NEGATIVE (NEGATIVE); SPECIFIC GRAVITY URINE 1.022 (1.005-1.030); UROBILINOGEN URINE 0.2 E.U./dL (0.2-1.0)
[2024-04-17 06:02] LABS: *AMPHETAMINES SCREEN URINE NEGATIVE (NEGATIVE)
[2024-04-17 06:03] LABS: *BARBITURATES SCREEN URINE NEGATIVE (NEGATIVE); *BENZODIAZEPINES SCREEN URINE NEGATIVE (NEGATIVE); *COCAINE SCREEN URINE NEGATIVE (NEGATIVE); CANNABINOID URINE SCREEN PRESUMPTIVE POSITIVE (NEGATIVE); METHADONE URINE SCREEN NEGATIVE (NEGATIVE); OPIATES URINE SCREEN PRESUMPTIVE POSITIVE (NEGATIVE); PHENCYCLIDINE URINE SCREEN NEGATIVE (NEGATIVE)
[2024-04-17 06:04] LABS: ECSTASY MDMA SCREEN URINE NEGATIVE (NEGATIVE)
[2024-04-17 06:30] LABS: SQUAMOUS EPITHELIAL CELL URINE 1+ /lpf (RARE/1+)
[2024-04-17 06:33] LABS: WBC URINE 15-25 /hpf (0-2)
[2024-04-17 06:36] LABS: BACTERIA URINE TRACE
[2024-04-17 08:03] VITALS: BP 116/63; PULSE 60; RESP 18; TEMP 36.61404; O2SAT 96
[2024-04-17 11:55] VITALS: BP 116/65; PULSE 61; RESP 18; TEMP 36.6696; O2SAT 98
[2024-04-17] MEDS: DOCUSATE SODIUM 250MG CAPSULE PO PRN (13:43)
[2024-04-17 16:00] VITALS: BP 114/63; PULSE 68; RESP 18; TEMP 36.6696; O2SAT 95
[2024-04-17 20:00] VITALS: BP 121/63; PULSE 67; RESP 20; TEMP 36.78072; O2SAT 97
[2024-04-17] MEDS ORDERED: NALOXONE HCL 0.4MG/ML VIAL IV PRN (23:00)
[2024-04-18] VITALS: BP 103/53; PULSE 59; RESP 20; TEMP 36.55848; O2SAT 100
[2024-04-18 04:00] VITALS: BP 136/69; PULSE 63; RESP 18; TEMP 36.28068; O2SAT 97
[2024-04-18 07:52] VITALS: BP 116/66; PULSE 61; RESP 18; TEMP 36.89184; O2SAT 98
[2024-04-18 11:52] VITALS: BP 101/51; PULSE 62; RESP 19; TEMP 36.3918; O2SAT 95
[2024-04-18] MEDS: DOCUSATE SODIUM 250MG CAPSULE PO SCH (14:33)
[2024-04-18] MEDS: NA PHOS,M-B/NA PHOS,DI-BA ENEMA 118ML PR NR (14:33)
[2024-04-18 15:47] VITALS: BP 117/66; PULSE 61; RESP 18; TEMP 36.83628; O2SAT 96
[2024-04-18 20:00] VITALS: BP 121/66; PULSE 67; RESP 16; TEMP 36.22512; O2SAT 98
[2024-04-19] VITALS: BP 133/64; PULSE 65; RESP 15; TEMP 36.22512; O2SAT 99
[2024-04-19 04:00] VITALS: BP 118/64; PULSE 60; RESP 19; TEMP 36.16956; O2SAT 100
[2024-04-19 08:00] VITALS: BP 130/72; PULSE 59; RESP 21; TEMP 36.61404; O2SAT 98
[2024-04-19 12:00] VITALS: BP 173/88; PULSE 82; RESP 24; TEMP 35.72508; O2SAT 90
[2024-04-19 16:00] VITALS: BP 105/55; PULSE 68; RESP 19; TEMP 36.55848; O2SAT 94
[2024-04-19 20:00] VITALS: BP 113/65; PULSE 73; RESP 18; TEMP 36.3918; O2SAT 100
[2024-04-20] VITALS: BP 117/67; PULSE 61; RESP 18; TEMP 36.16956; O2SAT 97
[2024-04-20 04:00] VITALS: BP 101/55; PULSE 63; RESP 19; TEMP 36.6696; O2SAT 96
[2024-04-20 08:00] VITALS: BP 114/62; PULSE 56; RESP 20; TEMP 36.114; O2SAT 95
[2024-04-20 12:00] VITALS: BP 121/65; PULSE 63; RESP 18; TEMP 36.61404; O2SAT 99
[2024-04-20 16:00] VITALS: BP 103/44; PULSE 66; RESP 17; TEMP 37.11408; O2SAT 97
[2024-04-20] MEDS: HYDROCODONE/ACETAMINOPHEN 10/325MG TABLET PO PRN (17:18)
[2024-04-20] MEDS: ZOLPIDEM TARTRATE 5MG TABLET PO PRN (21:17)
[2024-04-21] VITALS: BP 101/40; PULSE 19; RESP 19; TEMP 36.3918; O2SAT 16
[2024-04-21 04:00] VITALS: BP 111/61; PULSE 61; RESP 16; TEMP 35.78064; O2SAT 100
[2024-04-21 08:00] VITALS: BP 133/70; PULSE 62; RESP 19; TEMP 36.44736; O2SAT 100
[2024-04-21 12:00] VITALS: BP 103/56; PULSE 65; RESP 17; TEMP 36.33624; O2SAT 98
[2024-04-21 16:00] VITALS: BP 109/52; PULSE 64; RESP 18; TEMP 36.33624; O2SAT 98
[2024-04-21 20:00] VITALS: BP 141/67; PULSE 72; RESP 18; TEMP 36.33624; O2SAT 98
[2024-04-22 08:00] VITALS: BP 130/63; PULSE 63; RESP 19; TEMP 36.50292; O2SAT 97
[2024-04-22 12:00] VITALS: BP 114/64; PULSE 75; RESP 18; TEMP 35.89176; O2SAT 99
[2024-04-22 16:00] VITALS: BP 109/60; PULSE 72; RESP 19; TEMP 36.50292; O2SAT 97
[2024-04-22] MEDS: POLYETHYLENE GLYCOL 3350 (17GM) 1 DOSE PACK PO SCH (19:33)
[2024-04-22 20:00] VITALS: BP 103/49; PULSE 67; RESP 17; TEMP 36.33624; O2SAT 97
[2024-04-23] VITALS: BP 103/49; PULSE 63; RESP 18; TEMP 37.11408; O2SAT 99
[2024-04-23 04:00] VITALS: BP 150/91; PULSE 60; RESP 19; TEMP 36.3918; O2SAT 97
[2024-04-23 08:00] VITALS: BP 111/61; PULSE 63; RESP 19; TEMP 36.61404; O2SAT 95
[2024-04-23 12:00] VITALS: BP 101/50; PULSE 67; RESP 18; TEMP 35.94732; O2SAT 98
[2024-04-23 16:00] VITALS: BP 95/45; PULSE 67; RESP 19; TEMP 36.44736; O2SAT 98
[2024-04-23 20:00] VITALS: BP 113/53; PULSE 72; RESP 18; TEMP 36.6696; O2SAT 99
[2024-04-24] VITALS: BP 106/51; PULSE 72; RESP 18; TEMP 36.72516; O2SAT 97
[2024-04-24 04:00] VITALS: BP 103/67; PULSE 64; RESP 18; TEMP 36.28068; O2SAT 98
[2024-04-24 08:00] VITALS: BP 112/76; PULSE 65; RESP 18; TEMP 36.44736; O2SAT 99
[2024-04-24 12:00] VITALS: BP 124/67; PULSE 62; RESP 18; TEMP 36.61404; O2SAT 99
[2024-04-24] MEDS: ACETAMINOPHEN 650MG/20.3ML UDC PO PRN (13:43)
[2024-04-24 16:00] VITALS: BP 116/57; PULSE 73; RESP 17; TEMP 36.61404; O2SAT 97
[2024-04-24 21:10] VITALS: BP 116/57; PULSE 73; TEMP 97.9; O2SAT 95
[2024-04-25 04:00] VITALS: BP 134/61; PULSE 62; RESP 18; TEMP 36.44736; O2SAT 97
[2024-04-25 08:00] VITALS: BP 105/55; PULSE 76; RESP 18; TEMP 36.44736; O2SAT 99
[2024-04-25] MEDS: NA PHOS,M-B/NA PHOS,DI-BA ENEMA 118ML PR NR (08:15)
[2024-04-25] MEDS: LACTULOSE 20G/30ML UDC PO SCH (09:11)
[2024-04-25 12:00] VITALS: BP 128/59; PULSE 66; RESP 17; TEMP 36.55848; O2SAT 99
[2024-04-25 15:00] VITALS: BP 105/55; PULSE 18; TEMP 97.6; O2SAT 99
[2024-04-25 16:00] VITALS: BP 134/69; PULSE 67; RESP 18; TEMP 36.22512; O2SAT 98
== END 2024-04-25 17:36 | DRG 351 ==
LOC: ER 12:28 → 5WST 21:02 → 7WST 23:00 → 6EST 04-20 01:29
PROVIDERS: ADMIT Internal Medicine; ATTEND Internal Medicine
DX: M17.0 Bilateral primary osteoarthritis of knee (principal); I82.513 Chronic embolism and thrombosis of femoral vein, bilateral; E11.9 Type 2 diabetes mellitus without complications; E66.01 Morbid (severe) obesity due to excess calories; I48.91 Unspecified atrial fibrillation; I10 Essential (primary) hypertension; R42 Dizziness and giddiness; K59.00 Constipation, unspecified; Z79.01 Long term (current) use of anticoagulants; Z86.73 Personal history of transient ischemic attack (TIA), and cerebral infarction without residual deficits; Z68.41 Body mass index [BMI] 40.0-44.9, adult
CPT/HCPCS: 36415; 73560; 80053; 80061; 80305; 81003; 82962; 83036; 85025; 93970; 97163; 97166; 97530; 97535; 97760; 99285; C1893; J1815; J2405